=== PATIENT | male | born 1980 | race Caucasian/White ===

== ENCOUNTER 2016-08-24 07:49 | Emergency (ER) | payer BC ==
--- NOTE | 2016-08-24 08:12 | UC ---
Throat Pain/Nasal Glenn HPI - HPI Summary HPI Summary: complaint of nasal congestion, cough that started 4 days ago dry cough scratchy throat 1x day feels fatigued -denies muscle achiness denies fever took tylenol sinus OTC with some relief complaint of feeling anxious which has been worse for the last 9 months is and was in the hospital for several days always feels more anxiety when he is sick has been taking paxil for approx [address] Altamirano feels jittery and slightly nauseated today denies suicidal /homicidal ideation - History of Current Complaint Chief Complaint: UCRespiratory Stated Complaint: ANXIETY,COUGH Time Seen by Provider: 08/24/16 08:01 Hx Obtained From: Patient - Allergies/Home Medications Allergies/Adverse Reactions: Allergies Allergy/AdvReac Type Severity Reaction Status Date / Time environmentaL Allergy sinuses Uncoded 08/24/16 08:01 Home Medications: Home Medications Phenylephrine W/ Acetaminophen [Tylenol Sinus Congestion 5-325 mg] 1 tab PO DAILY PRN 08/24/16 [History Confirmed 08/24/16] PMH/Surg Hx/FS Hx/Imm Hx Previously Healthy: Yes Cardiovascular History Of: Denies: Pacemaker/ICD Respiratory History Of: Reports: Bronchitis - 03/2012 Psychological History Of: Reports: Anxiety - ON MEDICATION FOR, Depression - ON MEDICATION FOR - Surgical History Surgical History: Yes Surgery Procedure, Year, and Place: ROTATOR CUFF REPAIR- LEFT. SURGERY RIGHT MIDDLE FINGER - Family History Known Family History: Positive: Cardiac Disease, Hypertension Negative: Diabetes - Social History Occupation: Employed Full-time Lives: With Family Alcohol Use: Rare Substance Use Type: None Smoking Status (MU): Never Smoked Tobacco - Immunization History Most Recent Influenza Vaccination: March 2014 Review of Systems Constitutional: Negative Skin: Negative Eyes: Negative ENT: Nasal Discharge Respiratory: Cough Cardiovascular: Negative Gastrointestinal: Negative Genitourinary: Negative Motor: Negative Neurovascular: Negative Musculoskeletal: Negative Neurological: Negative Psychological: Negative All Other Systems Reviewed And Are Negative: Yes Physical Exam Triage Information Reviewed: Yes Appearance: No Pain Distress, Well-Nourished Vital Signs: Initial Vital Signs Temp 98.4 F 08/24/16 07:54 Pulse 80 08/24/16 07:54 Resp 20 08/24/16 07:54 BP 119/80 08/24/16 07:54 Pulse Ox 100 08/24/16 07:54 Vital Signs Reviewed: Yes Eyes: Positive: Conjunctiva Clear ENT: Positive: Pharyngeal erythema, Nasal congestion, Nasal drainage, TMs normal Neck: Positive: No Lymphadenopathy Respiratory: Positive: Lungs clear, Normal breath sounds, No respiratory distress Cardiovascular: Positive: RRR, No Murmur, Pulses Normal Abdomen Description: Positive: Nontender, Soft Bowel Sounds: Positive: Present Musculoskeletal: Positive: No Edema Neurological: Positive: Alert Psychological Exam: Normal Skin Exam: Normal Throat Pain/Nasal Course/Dx - Differential Dx/Diagnosis Differential Diagnosis/HQI/PQRI: Pharyngitis, URI Provider Diagnoses: anxiety, URI Discharge - Discharge Plan Condition: Stable Disposition: HOME Patient Education Materials: Anxiety (ED), Upper Respiratory Infection (ED) Referrals: Yazmin Altamirano MD [Medical Doctor] - [facility] [Outside] Additional Instructions: Anxiety If your symptoms of anxiety increase please contact your primary care provider to have your current medications for treatment evaluated. You can take your allergy medication as well to help control your symptoms of anxiety. Upper Respiratory Infection - Treatment is mainly symptom management and rest. -There is no cure for Upper Respiratory Infection. - Antibiotics will not work against viruses. -Stay home, rest, drink plenty of fluids, gargle with warm salt water to help soothe sore throat. -Avoid alcohol and smoking - Treat the symptoms with over the counter medications: - pain or fever- Acetaminophen or Ibuprofen - cough- use Guaifenesin , mucinex or robutussin - nasal congestion- Phenylephrine - If your symptoms worsen or do not improve in 7-10 days- please follow-up with your primary care physician or urgent care center
[2016-08-24 08:21] VITALS: BP 119/80
== END 2016-08-24 08:29 | disposition home or self-care (01) ==
LOC: UCCORT 07:49
DX: J06.9 Acute upper respiratory infection, unspecified (principal); F41.9 Anxiety disorder, unspecified
CPT/HCPCS: 99211; G0463

== ENCOUNTER 2017-11-14 18:02 | Emergency (ER) | payer BC ==
--- NOTE | 2017-11-14 18:24 | UC ---
Throat Pain/Nasal Glenn HPI - HPI Summary HPI Summary: 37 yo male presents with "scratchy" throat and painful swallowing and fatigue for the last 2 days. He is feeling better today, but is concerned because his was diagnosed with strep twice recently and he wants to make sure he doesn' t have it. Denies fever, chills, SOB, chest pain, abdominal pain. - History of Current Complaint Stated Complaint: COUGH, SORE THROAT Time Seen by Provider: 11/14/17 18:23 Hx Obtained From: Patient Onset/Duration: Sudden Onset Severity: Mild Pain Intensity: 2 Pain Scale Used: 0-10 Numeric - Allergies/Home Medications Allergies/Adverse Reactions: Allergies Allergy/AdvReac Type Severity Reaction Status Date / Time environmentaL Allergy sinuses Uncoded 11/14/17 18:26 PMH/Surg Hx/FS Hx/Imm Hx - Additional Past Medical History Additional PMH: Allergies Anxiety - Surgical History Surgical History: Yes Surgery Procedure, Year, and Place: ROTATOR CUFF REPAIR- LEFT. SURGERY RIGHT MIDDLE FINGER - Family History Known Family History: Positive: Cardiac Disease, Hypertension Negative: Diabetes - Social History Occupation: Employed Full-time Lives: With Family Alcohol Use: Rare Substance Use Type: None Smoking Status (MU): Never Smoked Tobacco - Immunization History Most Recent Influenza Vaccination: March 2014 Review of Systems Constitutional: Fatigue Skin: Negative Eyes: Negative ENT: Sore Throat Respiratory: Negative Cardiovascular: Negative Gastrointestinal: Negative Neurovascular: Negative Neurological: Negative Psychological: Negative All Other Systems Reviewed And Are Negative: Yes Physical Exam - Summary Physical Exam Summary: GENERAL: NAD. WDWN. No pain distress. SKIN: No rashes, sores, lesions, or open wounds. HEENT: Head: AT/NC Eyes: EOM intact. Conjunctiva clear without inflammation or discharge. Ears: Hearing grossly normal. TMs intact, no bulging, erythema, or edema. Nose: Nasal mucosa pink and moist. NTTP maxillary and frontal sinus. Throat: Posterior oropharynx without exudates, erythema, or tonsillar enlargement. Uvula midline. NECK: Supple. Nontender. No lymphadenopathy. CHEST: CTAB. No r/r/w. No accessory muscle use. Breathing comfortably and in no distress. CV: RRR. Without m/r/g. Pulses intact. Brisk cap refill. NEURO: Alert. CN II-XII grossly intact. PSYCH: Age appropriate behavior. Triage Information Reviewed: Yes Vital Signs: Vital Signs: Temp Pulse Resp BP Pulse Ox 98.1 F 79 14 122/79 99 11/14/17 18:24 11/14/17 18:24 11/14/17 18:24 11/14/17 18:24 11/14/17 18:24 Throat Pain/Nasal Course/Dx - Course Course Of Treatment: POC strep negative. Suspect viral illness. Advised to continue with conservative care as he is improving. - Differential Dx/Diagnosis Provider Diagnoses: viral illness Discharge - Sign-Out/Discharge Documenting (check all that apply): Discharge/Admit/Transfer - Discharge Plan Condition: Stable Disposition: HOME Patient Education Materials: Viral Syndrome (ED) Referrals: Renetta Abebe NP [Primary Care Provider] - Additional Instructions: If you develop a fever, shortness of breath, chest pain, new or worsening symptoms - please call your PCP or go to the ED. - Billing Disposition and Condition Condition: STABLE Disposition: Home
[2017-11-14 18:28] VITALS: BP 122/79
== END 2017-11-14 18:53 | disposition home or self-care (01) ==
LOC: UCCORT 18:02
DX: B34.9 Viral infection, unspecified (principal); Z91.09 Other allergy status, other than to drugs and biological substances
CPT/HCPCS: 87651; 99211; G0463

== ENCOUNTER 2018-06-04 07:51 | Emergency (ER) | payer BC ==
[2018-06-04 08:00] VITALS: BP 119/71
--- NOTE | 2018-06-04 08:26 | UC ---
Throat Pain/Nasal Glenn HPI - HPI Summary HPI Summary: Sore throat and myalgias for two days. No cough. Nausea as well. - History of Current Complaint Chief Complaint: UCGeneralIllness Stated Complaint: ST,NECK/BACK ACHE, FEVER Time Seen by Provider: 06/04/18 08:03 Hx Obtained From: Patient Onset/Duration: Gradual Onset, Lasting Days Severity: Moderate Pain Intensity: 6 Cough: None Associated Signs & Symptoms: Positive: Dysphagia - Allergies/Home Medications Allergies/Adverse Reactions: Allergies Allergy/AdvReac Type Severity Reaction Status Date / Time environmentaL Allergy sinuses Uncoded 06/04/18 08:00 PMH/Surg Hx/FS Hx/Imm Hx Previously Healthy: Yes - Surgical History Surgical History: Yes Surgery Procedure, Year, and Place: ROTATOR CUFF REPAIR- LEFT. SURGERY RIGHT MIDDLE FINGER - Family History Known Family History: Positive: Cardiac Disease, Hypertension Negative: Diabetes - Social History Lives: With Family Alcohol Use: Rare Substance Use Type: None Smoking Status (MU): Never Smoked Tobacco - Immunization History Most Recent Influenza Vaccination: March 2014 Review of Systems All Other Systems Reviewed And Are Negative: Yes Constitutional: Positive: Chills, Fatigue ENT: Positive: Sore Throat Physical Exam Triage Information Reviewed: Yes Appearance: Well-Appearing, No Pain Distress, Well-Nourished Vital Signs: Initial Vital Signs Temp 98.2 F 06/04/18 07:58 Pulse 87 06/04/18 07:58 Resp 18 06/04/18 07:58 BP 119/71 06/04/18 07:58 Pulse Ox 98 06/04/18 07:58 Vital Signs Reviewed: Yes ENT: Positive: Pharyngeal erythema, TMs normal, Tonsillar swelling, Tonsillar exudate, Uvula midline. Negative: Trismus Neck: Positive: Supple, Nontender, No Lymphadenopathy. Negative: Nuchal Rigidity Respiratory: Positive: Lungs clear, Normal breath sounds, No respiratory distress, No accessory muscle use. Negative: Respiratory distress, Decreased breath sounds, Accessory muscle use, Crackles, Rhonchi, Stridor, Wheezing Cardiovascular: Positive: No Murmur, Pulses Normal Abdomen Description: Negative: Distended, Guarding Musculoskeletal: Positive: Strength Intact, ROM Intact, No Edema Neurological: Positive: Alert, Muscle Tone Normal. Negative: Fatigued Psychological: Positive: Age Appropriate Behavior Skin: Negative: Rashes Throat Pain/Nasal Course/Dx - Differential Dx/Diagnosis Provider Diagnosis: Strep throat Discharge - Sign-Out/Discharge Documenting (check all that apply): Patient Departure All imaging exams completed and their final reports reviewed: No Studies - Discharge Plan Condition: Good Disposition: HOME Prescriptions: Penicillin VK 500 MG TAB(NF) [Penicillin VK 500 mg Tab] 500 mg PO TID #30 tab Patient Education Materials: Strep Throat (ED) Referrals: Renetta Abebe NP [Primary Care Provider] - - Billing Disposition and Condition Condition: GOOD Disposition: Home
== END 2018-06-04 08:24 | disposition home or self-care (01) ==
LOC: UCCORT 07:51
DX: J02.0 Streptococcal pharyngitis (principal); B95.0 Streptococcus, group A, as the cause of diseases classified elsewhere
CPT/HCPCS: 87651; 99212; G0463

== ENCOUNTER 2018-06-16 08:08 | Emergency (ER) | payer BC ==
[2018-06-16 08:29] VITALS: BP 120/81
--- NOTE | 2018-06-16 09:19 | ED ---
Respiratory - HPI Summary HPI Summary: 37 yr old male with the complaint of cough for two weeks, yellow green sputum, mild SOB. He feels fatigued, but he has not had fever. The patient denies dizziness. Denies chest pain. He has head congestion, and post nasal drip. - History of Current Complaint Chief Complaint: UCRespiratory Stated Complaint: CHEST CONGESTION, COUGH Time Seen by Provider: 06/16/18 08:37 Pain Intensity: 0 - Allergy/Home Medications Allergies/Adverse Reactions: Allergies Allergy/AdvReac Type Severity Reaction Status Date / Time environmentaL Allergy sinuses Uncoded 06/16/18 08:22 Home Medications: Home Medications Acetaminophen [Acetaminophen Extra Strength] 500 mg PO ONCE PRN 06/16/18 [ History Confirmed 06/16/18] Multi Cold Symptom Cough Med 2 tab PO ONCE PRN 06/16/18 [History] Multivitamin [Multivitamins] 1 cap PO DAILY 06/16/18 [History Confirmed 06/16/18 ] PMH/Surg Hx/FS Hx/Imm Hx Cardiovascular History: Denies: Hx Pacemaker/ICD GI History: Reports: Hx Gastroesophageal Reflux Disease, Hx Irritable Bowel Sensory History: Denies: Hx Contacts or Glasses, Hx Hearing Aid Opthamlomology History: Denies: Hx Contacts or Glasses Psychiatric History: Reports: Hx Anxiety - ON MEDICATION FOR, Hx Depression - ON MEDICATION FOR Denies: Hx Panic Disorder - Surgical History Surgery Procedure, Year, and Place: ROTATOR CUFF REPAIR- LEFT. SURGERY RIGHT MIDDLE FINGER Hx Anesthesia Reactions: No Infectious Disease History: No Infectious Disease History: Denies: Traveled Outside the [place] in Last 30 Days - Family History Known Family History: Positive: Cardiac Disease, Hypertension Negative: Diabetes - Social History Occupation: Employed Full-time Alcohol Use: Rare Substance Use Type: Reports: None Smoking Status (MU): Never Smoked Tobacco Review of Systems Positive: Fatigue Positive: Sore Throat, Nasal Discharge Positive: Cough All Other Systems Reviewed And Are Negative: Yes Physical Exam Triage Information Reviewed: Yes Vital Signs On Initial Exam: Initial Vitals Temp Pulse Resp BP Pulse Ox 98.3 F 80 15 120/81 99 06/16/18 08:25 06/16/18 08:25 06/16/18 08:25 06/16/18 08:25 06/16/18 08:25 Vital Signs Reviewed: Yes Appearance: Positive: Well-Appearing, No Pain Distress Skin: Positive: Warm, Skin Color Reflects Adequate Perfusion Head/Face: Positive: Normal Head/Face Inspection Eyes: Positive: EOMI ENT: Positive: Pharynx normal, Nasal congestion, Nasal drainage, TMs normal Neck: Positive: Nontender Respiratory/Lung Sounds: Positive: Clear to Auscultation, Breath Sounds Present Cardiovascular: Positive: RRR. Negative: Murmur Abdomen Description: Positive: Nontender Musculoskeletal: Positive: Strength/ROM Intact Neurological: Positive: Sensory/Motor Intact, Alert, Oriented to Person Place, Time, CN Intact II-III, Normal Gait, Speech Normal Psychiatric: Positive: Normal - Fatuma Coma Scale Best Eye Response: 4 - Spontaneous Best Motor Response: 6 - Obeys Commands Best Verbal Response: 5 - Oriented Coma Scale Total: 15 Diagnostics - Vital Signs Vital Signs Temp Pulse Resp BP Pulse Ox 06/16/18 08:25 98.3 F 80 15 120/81 99 - Laboratory Lab Statement: Any lab studies that have been ordered have been reviewed, and results considered in the medical decision making process. - Radiology chest pa lat Radiology Interpretation Completed By: Radiologist - NAD Disposition - Course Course Of Treatment: 37 yr old male with cough, and some SOB. Negative chest xray read by rad. - Diagnoses Provider Diagnoses: Sinusitis, Asthmatic bronchitis with acute exacerbation Discharge - Sign-Out/Discharge Documenting (check all that apply): Patient Departure All imaging exams completed and their final reports reviewed: Yes - Discharge Plan Condition: Good Disposition: HOME Prescriptions: Albuterol HFA INHALER* [Ventolin HFA Inhaler*] 1 - 2 puff INH Q4H PRN #1 mdi PRN Reason: Cough Clarithromycin TAB* [Biaxin 500 MG TAB*] 500 mg PO BID #20 tab Patient Education Materials: Sinusitis (ED), Asthma (ED) Referrals: Renetta Abebe NP [Primary Care Provider] - 2 Days - Billing Disposition and Condition Condition: GOOD Disposition: Home
== END 2018-06-16 09:27 | disposition home or self-care (01) ==
LOC: UCCORT 08:08
DX: J45.901 Unspecified asthma with (acute) exacerbation (principal); J32.9 Chronic sinusitis, unspecified
CPT/HCPCS: 71046; 99212; G0463

== ENCOUNTER 2018-11-27 07:15 | Emergency (ER) | payer BC ==
--- OUTSIDE RECORDS SUMMARY | 2018-11-27 07:26 | XMS REPORT | Continuity of Care Document ---
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 Unavailable Charlene Abebe, DISABILITY SERVICES COORDINATOR Primary Care Physician Unavailable Payers Date Identification Numbers Payment Provider Subscriber Effective: 2013 Policy Number: [id number] Jessika Mcneill PayID: [id number] [place] [address] Expires: 2013 Policy Number: [id number] Jessika Mcneill Group Name: Lance Huffman [address] PayID: [id number] [place] [address] Problems Active Problems Provider Date Gastroesophageal reflux disease Birgit Leavitt FNP Onset: 01/21/2012 Single major depressive episode Birgit Leavitt FNP Onset: 01/21/2012 Benign paroxysmal positional vertigo Charlene Abebe FNP Onset: 2015 Note: followed by Dr. Martinez Generalized anxiety disorder Charlene Abebe FNP Onset: 09/16/2017 Corns and callosities Charlene Abebe FNP Onset: 09/16/2017 Allergic rhinitis Charlene Abebe FNP Onset: 10/06/2017 Kidney stone Nancy Simmons M.D. Onset: 01/03/2018 Resolved Problems Malaise and fatigue Birgit Leavitt FNP Onset: 01/21/2012 Resolved: 07/05/2018 Family History Date Family Member(s) Observation Comments Father No Current Problems Mother CAD collapsed artery in heart Mother Anxiety Paternal Grandfather due to () Parkinson's Disease Paternal Grandmother Diabetes diet controlled : (age Maternal Grandfather due to Kidney 85 Years) Disease Maternal Grandmother due to () Alzheimer's Disease Social History Type Date Description Comments Sex Unknown Lives With Lives With Son Diet Patient follows no dietary restrictions Occupation [employer] Use Drinks Alcoholic Beverages Occasionally Tobacco Use Start: Unknown Patient has never smoked Recreational Drug Use Never Used Drugs Smoking Status Reviewed: 10/19/18 Patient has never smoked Allergies, Adverse Reactions, Alerts Description No Known Drug Allergies Medications Active Medications SIG Qnty Indications Ordering Date Provider Omeprazole 1 by mouth 90caps K21.9 [place], 10/19/[address] every day WINSOME Chang Naproxen take one 60tabs M25.50 [place], 10/19/2018 500mg Tablets tablet by Charlene, mouth twice a [employer] day Meclizine HCL 1 tab by mouth 60tabs H81.12 Hood Wallace MD 09/20/2018 25mg Tablets twice a day Qnasl [place] 1 [place] 26.1units J30.9 [place], 10/06/2017 80mcg/Act [facility] Nostril Once A [employer] Day Buspirone HCL Take One To 60tabs F41.1 [place], 09/16/2017 5mg Tablets Two Tablets By Charlene, Mouth Twice A [employer] Day as Needed For Anxiety And Panic Attacks Paroxetine HCL Take One 30tabs stephanie, 08/24/2016 40mg Tablets Tablet By Charlene, Mouth Every [employer] Day Levocetirizine 1 by mouth 90tabs [place], Dihydrochloride every night Charlene 5mg Tablets [facility] Multivitamin 1 tab po daily Unknown History Medications Augmentin 1 by mouth 20tabs J01.90 Charlene Abebe, 07/05/2018 - 500-125mg twice a day [employer] 07/15/2018 Tablets Tamsulosin HCL Once Daily 10caps Unknown 01/01/2018 - 01/26/2018 0.4mg Capsules Amoxicillin 1 by mouth 14tabs Shirley Orlando MD 09/09/2015 - 875mg twice a day 09/19/2015 Tablets Omeprazole take one 30caps Charlene Abebe, 08/12/2014 - 20mg capsule by [facility] 09/16/[address] mouth every day [facility] Laxative 1 po bid 60tabs Yazmin Altamirano, 01/16/2013 - 03/31/2015 625mg Tablets Qnasl one spray to Yazmin Altamirano, - 80mcg/Act each nostril 03/31/2015 Aerosol every day Paroxetine HCL Take Two 60tabs Charlene Abebe, - 20mg Tablets By [facility] 08/24/2016 Tablets Mouth Every Day Immunizations CPT Code Status Date Vaccine Lot # [id number] Given 03/17/2018 Influenza Virus Vaccine, Quadrivalent, 36 Mos+, .5ML 08506 Given 03/25/2017 Influenza Virus Vaccine, Quadrivalent, [place] Virus[place] Use [id number] Given 04/02/2016 Influenza Virus Vaccine Split Virus Use For Individual 3Yr Older [id number] Given 03/31/2015 Influenza Vaccine (Fluzone) Age 3 And Older [id number] 18519 Given 03/31/2015 Tdap injection [id number] 89346 Given 04/16/2014 flu vaccination 51731 Given 04/11/2013 flu vaccination 22315 Given 03/14/2012 flu vaccination Vital Signs Date Vital Result Comment 10/19/2018 11:20am BP Systolic 114 mmHg BP Diastolic 72 mmHg Body Temperature 97.9 F Heart Rate 77 /min Respiratory Rate 18 /min Height 67 inches 5'7" Weight 153.25 lb BMI (Body Mass Index) 24.0 kg/m2 BSA (Body Surface Area) 1.81 m2 [place] body weight in kilograms 67 kg O2 % BldC Oximetry 97 % Ra 09/20/2018 9:04am BP Systolic 118 mmHg BP Diastolic 76 mmHg Body Temperature 97.0 F Heart Rate 83 /min Height 67 inches 5'7" Weight 153.00 lb BMI (Body Mass Index) 24.0 kg/m2 BSA (Body Surface Area) 1.80 m2 [place] body weight in kilograms 67 kg O2 % BldC Oximetry 98 % 08/18/2018 10:31am BP Systolic Sitting Right Arm 114 mmHg BP Diastolic Sitting Right Arm 68 mmHg Body Temperature 97.6 F Heart Rate 95 /min Weight 153.00 lb O2 % BldC Oximetry 96 % 07/05/2018 9:47am BP Systolic Sitting Left Arm 120 mmHg BP Diastolic Sitting Left Arm 82 mmHg Body Temperature 97.4 F Heart Rate 84 /min Weight 163.12 lb O2 % BldC Oximetry 98 % 01/26/2018 3:13pm BP Systolic 115 mmHg BP Diastolic 76 mmHg Body Temperature 98.1 F Heart Rate 86 /min Respiratory Rate 16 /min Height 67 inches 5'7" [place] body weight in kilograms 67 kg O2 % BldC Oximetry 97 % Pain Level 0 01/03/2018 8:05am BP Systolic 120 mmHg BP Diastolic 83 mmHg Body Temperature 98.1 F Heart Rate 73 /min Respiratory Rate 18 /min Height 67 inches 5'7" Weight 153.00 lb BMI (Body Mass Index) 24.0 kg/m2 BSA (Body Surface Area) 1.80 m2 [place] body weight in kilograms 67 kg O2 % BldC Oximetry 98 % Pain Level 2 intemittent rt flank 10/06/2017 3:14pm BP Systolic Sitting Left Arm 120 mmHg BP Diastolic Sitting Left Arm 72 mmHg Heart Rate 80 /min Respiratory Rate 18 /min Height 67 inches 5'7" Weight 153.00 lb BMI (Body Mass Index) 24.0 kg/m2 BSA (Body Surface Area) 1.80 m2 [place] body weight in kilograms 67 kg 09/16/2017 1:58pm BP Systolic Sitting Left Arm 112 mmHg BP Diastolic Sitting Left Arm 72 mmHg Heart Rate 88 /min Respiratory Rate 18 /min Height 67 inches 5'7" Weight 147.38 lb BMI (Body Mass Index) 23.1 kg/m2 BSA (Body Surface Area) 1.78 m2 [place] body weight in kilograms 67 kg 03/31/2015 3:54pm BP Systolic 112 mmHg BP Diastolic 70 mmHg Height 57 inches 4'9" Weight 142.50 lb BMI (Body Mass Index) 30.8 kg/m2 BSA (Body Surface Area) 1.56 m2 08/12/2014 3:22pm BP Systolic 114 mmHg BP Diastolic 72 mmHg Body Temperature 97.8 F Weight 153.00 lb 02/11/2014 4:03pm BP Systolic 116 mmHg BP Diastolic 72 mmHg Body Temperature 98.2 F Heart Rate 80 /min Respiratory Rate 20 /min Height 67 inches 5'7" Weight 145.00 lb 01/16/2013 3:31pm BP Systolic 118 mmHg BP Diastolic 86 mmHg Height 67 inches 5'7" Weight 146.00 lb 07/18/2012 3:28pm BP Systolic 110 mmHg BP Diastolic 68 mmHg Height 67 inches 5'7" Weight 144.00 lb 03/14/2012 3:28pm BP Systolic 112 mmHg BP Diastolic 66 mmHg Height 67 inches 5'7" Weight 141.00 lb 03/01/2012 4:24pm Height 67 inches 5'7" Weight 141.00 lb 02/01/2012 10:23am BP Systolic 100 mmHg BP Diastolic 72 mmHg Height 67 inches 5'7" Weight 138.00 lb 01/11/2012 1:55pm BP Systolic 110 mmHg BP Diastolic 70 mmHg Height 67 inches 5'7" Weight 142.00 lb Results Test Date Facility Test Result H/L Range Note Rheumatoid Panel 10/19/[address] Sedimentation Rate 8 mm/hr N 2-40 1, 2 ([facility]) [address] [place] [phone] Uric Acid 6.2 mg/dL N 3.5-7.2 Rheumatoid Factor Screen < 10.0 IU/mL N 0.0-15.0 C-Reactive Protein,Quant < 3.0 mg/L <3.0 Antinuclear Antibodies, Ifa Negative . 3 Lyme AB/Western 10/19/[address] [facility] [address] Lyme Total < 0.91 ISR 0.00- 0.90 4 Blot Reflex [address] [place] [address] AB/[place] [address] [phone] Lyme Disease Antibody,QT,Igm < 0.80 index 0.00-0.79 5 CBC 10/19/[address] [facility] [address] White Blood Count 12.5 K/uL High 3.4- 10.[address] [place] [address] [phone] Red Blood Count 5.41 M/uL N 4.20-5.80 Hemoglobin 16.6 gm/dL N 12.8-17.0 Hematocrit 49.5 % High 38.0-48.0 Mean Cell Volume 91.5 fl N 80.0-96.0 Mean Corpuscular HGB 30.7 pg N 27.0-33.0 Mean Corpuscular HGB Conc 33.5 g/dL N 31.7-36.0 Platelet Count 300 K/uL N 155-360 Red Cell Distri Width SD 44.5 fl N 36-51 Red Cell Distri Width %CV 13.2 % N 11.6-15.8 Mean Platelet Volume 12.2 fl High 6.6-10.6 NRBC % 0.0 /100WBC < 10/ 100 WBC Systemic Lupus 10/19/[address] [facility] [address] Ra Latex <10.0 IU/mL 0.0- 13.9 Erythem. Profil [address] [facility] [place] [address] [phone] Anti-Dna Antibody ([place]) <1 IU/mL 0-9 6 SM Antibody <0.2 AI 0.0-0.9 COMMISSIONS COORDINATOR Antibody <0.2 AI 0.0-0.9 Sjogrens Antibodies (Ssa) <0.2 AI 0.0-0.9 Antichromatin Antibodies <0.2 AI 0.0-0.9 Sjogrens Antibodies (SSB) <0.2 AI 0.0-0.9 Laboratory test finding 10/19/2018 [facility] [address] Calcium 9.2 mg/dL N 8.5-10.1 [address] [place] [address] [phone] Total Protein 7.8 g/dL N 6.4-8.2 Albumin 4.1 g/dL N 3.4-5.0 Alb/Glob 1.1 ratio Alkaline Phosphatase 100 U/L N 45-117 Globulin 3.7 g/dL N 1.9-4.3 Laboratory 06/04/2018 [facility] Rapid Strep POSITIVE Abnormal Negative 7 test finding [phone] Molecular Calculi,Urinar 01/26/2018 [facility] Color Brown . 8 y,With Photo [address] [place] [address] [phone] Size 4x3x2 mm . Weight 21.9 mg . Composition (SEE NOTE) 9 Ca Oxalate,Dihydrate 20 % . Ca Oxalate,Monohydrate 75 % . Calcium Phosphate 05 % . Nidus No Nidus visuali <SEE NOTE> . 10 Comment Note: . 11 . (SEE NOTE) 12 . (SEE NOTE) 13 . (SEE NOTE) 14 Disclaimer (SEE NOTE) 15 Monocytes/leuk NFr 01/01/2018 N2N/CCD Import Monocytes/leuk NFr 7.7 0.0- 10.0 Bld Auto Bld Auto Neutrophils # Bld 01/01/2018 N2N/CCD Import Neutrophils # Bld 5.36 1.8- 7.0 Auto Auto Neutrophils/leuk NFr 01/01/2018 N2N/CCD Import Neutrophils/leuk 64.5 33.0-73.0 Bld Auto NFr Bld Auto Potassium SerPl-sCnc 01/01/2018 N2N/CCD Import Potassium 3.7 3.5-5.1 SerPl-sCnc RDW RBC Auto 01/01/2018 N2N/CCD Import RDW RBC Auto 41.8 36-51 RDW RBC Auto-Rto 01/01/2018 N2N/CCD Import RDW RBC Auto-Rto 13.0 11.6- 15.8 Serum carbon dioxide 01/01/2018 N2N/CCD Import Serum carbon 27 21-32 measurement dioxide measurement Serum or plasma 01/01/2018 N2N/CCD Import Serum or plasma 3.7 3.4-5.0 albumin measurement albumin measurement (mass/volume) (mass/volume) Serum or plasma 01/01/2018 N2N/CCD Import Serum or plasma 82 45-117 alkaline phosphatase alkaline measurement ( phosphatase measurement (enzymatic activity/volume) Serum or plasma 01/01/2018 N2N/CCD Import Serum or plasma 21 15-37 aspartate aspartate aminotransferase aminotransferase measure measurement (enzymatic activity/volume) Serum or plasma 01/01/2018 N2N/CCD Import Serum or plasma 8.8 8.5-10.1 calcium measurement calcium measurement (mass/volume) (mass/volume) Serum or plasma 01/01/2018 N2N/CCD Import Serum or plasma 1.1 0.6-1.3 creatinine creatinine measurement measurement (mass/volum (mass/volume) Serum or plasma 01/01/2018 N2N/CCD Import Serum or plasma 108 High 74- 106 glucose measurement glucose measurement (mass/volume) (mass/volume) Serum or plasma 01/01/2018 N2N/CCD Import Serum or plasma 138 56-289 lipase measurement lipase measurement (enzymatic acti (enzymatic activity/volume) Serum or plasma 01/01/2018 N2N/CCD Import Serum or plasma 7.2 6.4-8.2 protein measurement protein measurement (mass/volume) (mass/volume) Serum or plasma 01/01/2018 N2N/CCD Import Serum or plasma 0.5 0.2-1.0 total bilirubin total bilirubin measurement (mass/ measurement (mass/volume) Serum or plasma urea 01/01/2018 N2N/CCD Import Serum or plasma 12 7-18 nitrogen measurement urea nitrogen (mass/vo measurement (mass/volume) Serum sodium 01/01/2018 N2N/CCD Import Serum sodium 142 136-145 measurement measurement Comprehensive 01/01/2018 [facility] Glucose 108 High 74-106 16 Metabolic Panel [address] mg/[place] [address] [phone] BUN 12 mg/dL N 7-18 Creatinine 1.1 mg/dL N 0.6-1.3 Glom Filtration Rate, Estimate >60 mL/min >60 If >60 mL/min >60 17 BUN/Creat 10.9 ratio Sodium 142 mmol/L N 136-145 Potassium 3.7 mmol/L N 3.5-5.1 Chloride 108 mmol/L High 98-107 Carbon Dioxide 27 mmol/L N 21-32 Anion Gap 7 mEq/L Low 8-16 Calcium 8.8 mg/dL N 8.5-10.1 Total Protein 7.2 g/dL N 6.4-8.2 Albumin 3.7 g/dL N 3.4-5.0 Globulin 3.5 g/dL N 1.9-4.3 Alb/Glob 1.1 ratio Bilirubin,Total 0.5 mg/dL N 0.2-1.0 Sgot/Ast 21 U/L N 15-37 SGPT/Alt 27 U/L N 12-78 Alkaline Phosphatase 82 U/L N 45-117 CBS W/Automated Diff 01/01/2018 [facility] White Blood 8.3 K/uL N 3.4-10.[address] [place] [address] [phone] Red Blood Count 5.10 M/uL N 4.20-5.80 Hemoglobin 15.6 gm/dL N 12.8-17.0 Hematocrit 45.3 % N 38.0-48.0 Mean Cell Volume 88.8 fl N 80.0-96.0 Mean Corpuscular HGB 30.6 pg N 27.0-33.0 Mean Corpuscular HGB Conc 34.4 g/dL N 31.7-36.0 Platelet Count 224 K/uL N 155-360 Red Cell Distri Width SD 41.8 fl N 36-51 Red Cell Distri Width %CV 13.0 % N 11.6-15.8 Mean Platelet Volume 11.4 fL High 6.6-10.6 Neut% 64.5 % N 33.0-73.0 Lymph % 24.4 % N 20.0-42.0 [place] % 7.7 % N 0.0-10.0 Eo% 3.0 % N 0.0-6.6 Bas% 0.4 % N 0.0-1.1 Neut# 5.36 K/uL N 1.8-7.0 Lymph # 2.03 K/uL N 1.0-4.0 [place] # 0.64 K/uL N 0.0-0.8 Eos # 0.25 K/uL N 0.0-0.5 Baso # 0.03 K/uL N 0.0-0.1 Laboratory 01/01/2018 [facility] Lipase 138 U/L N 56-289 test finding [address] [place] [address] [phone] Alt SerPl-cCnc 01/01/2018 N2N/CCD Import Alt SerPl-cCnc 27 12-78 Albumin/Glob 01/01/2018 N2N/CCD Import Albumin/Glob 1.1 SerPl SerPl Anion Gap 01/01/2018 N2N/CCD Import Anion Gap 7 Low 8-16 SerPl-sCnc SerPl-sCnc Automated 01/01/2018 N2N/CCD Import Automated blood 0.03 0.0-0.1 blood basophil basophil count count (count/volume) (count/volume) Automated 01/01/2018 N2N/CCD Import Automated blood 0.25 0.0-0.5 blood eosinophil eosinophil count count Automated 01/01/2018 N2N/CCD Import Automated blood 45.3 38.0-48.0 blood hematocrit hematocrit (volume (volume fraction) fraction) Automated 01/01/2018 N2N/CCD Import Automated blood 2.03 1.0-4.0 blood lymphocyte lymphocyte count count (number/volume) (number/volume ) Automated 01/01/2018 N2N/CCD Import Automated blood 224 155-360 blood platelet platelet count count Automated 01/01/2018 N2N/CCD Import Automated blood 11.4 High 6.6-10.6 blood platelet platelet mean mean volume volume measurement measurement Automated 01/01/2018 N2N/CCD Import Automated 30.6 27.0-33.0 erythrocyte erythrocyte mean mean corpuscular corpuscular hemoglobin hemoglobin (mass per erythrocyte) Lymphocytes/le 01/01/2018 N2N/CCD Import Lymphocytes/jeremy 24.4 20.0-42.0 uk NFr Bld k NFr Bld Auto Auto Globulin Ser 01/01/2018 N2N/CCD Import Globulin Ser 3.5 1.9-4.3 Calc-mCnc Calc-mCnc Eosinophil/jeremy 01/01/2018 N2N/CCD Import Eosinophil/leuk 3.0 0.0-6.6 k NFr Bld Auto NFr Bld Auto Chloride 01/01/2018 N2N/CCD Import Chloride 108 High 98-107 SerPl-sCnc SerPl-sCnc Blood 01/01/2018 N2N/CCD Import Blood monocytes 0.64 0.0-0.8 monocytes automated count automated (number/volume) count (number/volume ) Blood 01/01/2018 N2N/CCD Import Blood 8.3 3.4-10.5 leukocytes leukocytes automated automated count count (number/volume) (number/volume ) Automated 01/01/2018 N2N/CCD Import Automated 34.4 31.7-36.0 erythrocyte erythrocyte mean mean corpuscular corpuscular hemoglobin hemoglobin concentration measurement (mass/volume) Automated 01/01/2018 N2N/CCD Import Automated 88.8 80.0-96.0 erythrocyte erythrocyte mean mean corpuscular corpuscular volume volume BUN/Creat 01/01/2018 N2N/CCD Import BUN/Creat SerPl 10.9 SerPl Basophils/leuk 01/01/2018 N2N/CCD Import Basophils/leuk 0.4 0.0-1.1 NFr Bld Auto NFr Bld Auto Blood 01/01/2018 N2N/CCD Import Blood 5.10 4.20-5.80 erythrocytes erythrocytes automated automated count count (number/volume) (number/volume ) Blood 01/01/2018 N2N/CCD Import Blood 15.6 12.8-17.0 hemoglobin hemoglobin measurement measurement (mass/volume) (mass/volume) Laboratory 11/14/2017 [facility] Rapid Strep Negative Negative 18 test finding [phone] Molecular LDL 09/16/[address] Cholesterol 245 mg/dL High <200 19, Cholesterol [address] [place] [address] [phone] Triglycerides 124 mg/dL <150 21 HDL Cholesterol 67 mg/dL >40 22 LDL-Cholesterol 153 mg/dL < 100 23 Comprehensive Metabolic 09/16/[address] Glucose 80 mg/dL N 74 -[address] [place], [place] [id number] [phone] BUN 15 mg/dL N 7-18 Creatinine 1.0 mg/dL N 0.6-1.3 Glom Filtration Rate, Estimate >60 mL/min >60 If >60 mL/min >60 24 BUN/Creat 15.0 ratio Sodium 141 mmol/L N 136-145 Potassium 3.8 mmol/L N 3.5-5.1 Chloride 103 mmol/L N 98-107 Carbon Dioxide 26 mmol/L N 21-32 Anion Gap 12 mEq/L N 8-16 Calcium 9.5 mg/dL N 8.5-10.1 Total Protein 8.0 g/dL N 6.4-8.2 Albumin 4.2 g/dL N 3.4-5.0 Globulin 3.8 g/dL N 1.9-4.3 Alb/Glob 1.1 ratio Bilirubin,Total 0.7 mg/dL N 0.2-1.0 Sgot/Ast 26 U/L N 15-37 SGPT/Alt 31 U/L N 12-78 Alkaline Phosphatase 81 U/L N 45-117 Serum or plasma 09/16/2017 N2N/CCD Import Serum or plasma 67 >40 cholesterol in cholesterol in HDL HDL measurement measurement (ma (mass/volume) Serum or plasma 09/16/2017 N2N/CCD Import Serum or plasma 124 <150 triglyceride triglyceride measurement measurement (mass/vol (mass/volume) Serum or plasma 09/16/2017 N2N/CCD Import Serum or plasma 245 High <200 cholesterol cholesterol measurement measurement (mass/volu (mass/volume) Serum or plasma 09/16/2017 N2N/CCD Import Serum or plasma 153 < 100 cholesterol in cholesterol in LDL LDL measurement measurement by by calculation (mass/volume) CBC Auto Diff 02/16/2016 [facility] White Blood Count 7.7 N 3.5-10.8 25 [phone] 10^3/uL Red Blood Count 5.15 10^6/uL N 4.0-5.4 Hemoglobin 15.3 g/dL N 14.0-18.0 Hematocrit 46 % N 42-52 Mean Corpuscular Volume 90 fL N 80-94 Mean Corpuscular Hemoglobin 30 pg N 27-31 Mean Corpuscular HGB Conc 33 g/dL N 31-36 Red Cell Distribution Width 13 % N 10.5-15 Platelet Count 222 10^3/uL N 150-450 Mean Platelet Volume 11 um3 High 7.4-10.4 Abs Neutrophils 5.3 10^3/uL N 1.5-7.7 Abs Lymphocytes 1.7 10^3/uL N 1.0-4.8 Abs Monocytes 0.5 10^3/uL N 0-0.8 Abs Eosinophils 0.1 10^3/uL N 0-0.6 Abs Basophils 0 10^3/uL N 0-0.2 Abs Nucleated RBC 0 10^3/uL N Granulocyte % 69.2 % N 38-83 Lymphocyte % 22.5 % Low 25-47 Monocyte % 6.6 % N 1-9 Eosinophil % 1.2 % N 0-6 Basophil % 0.5 % N 0-2 Nucleated Red Blood Cells % 0 N Basic Metabolic 02/16/2016 [facility] Sodium 139 mmol /L N 133-145 Panel [phone] Chloride 104 mmol/L N 101-111 Co2 Carbon Dioxide 29 mmol/L N 22-32 Glucose 92 mg/dL N 70-100 Blood Urea Nitrogen 14 mg/dL N 6-24 Creatinine 1.01 mg/dL N 0.67-1.17 BUN/Creatinine Ratio 13.9 N 8-20 Calcium 9.4 mg/dL N 8.6-10.3 Egfr Non- 84.1 N >60 Egfr 108.1 N >60 26 Potassium TNP mmol/L N 3.5-5.0 Anion Gap TNP mmol/L N 2-11 Laboratory test 09/28/2013 N2N/CCD Import Ebv Capsid Ag Positive Negative finding IgG Ab Ebv Capsid Ag IgM Ab Negative Negative Valerie-Ball Nuclear Antigen Positive Negative Valerie-Ball Virus Interp See Comment 27 Monospot Negative Negative 28 CBC Auto Diff 08/01/2012 N2N/CCD Import Abs Basophils 0 10^3/uL 0-0.2 Abs Eosinophils 0.1 10^3/uL 0-0.6 Abs Lymphocytes 1.7 10^3/uL 1.0-4.8 Abs Monocytes 0.5 10^3/uL 0-0.8 Abs Neutrophils 5.2 10^3/uL 1.5-7.7 Abs Nucleated RBC 0.02 10^3/uL Hematocrit 46 % 42-52 Hemoglobin 16.1 g/dL 14.0-18.0 Mean Corpuscular HGB Conc 35 g/dL 31-36 Mean Corpuscular Hemoglobin 32 pg High 27-31 Mean Corpuscular Volume 91 fL 80-94 Mean Platelet Volume 11 um3 High 7.4-10.4 Platelet Count 210 10^3/uL 150-450 Red Blood Count 5.06 10^6/uL 4.0-5.4 Red Cell Distribution Width 14 % 10.5-15 White Blood Count 7.5 10^3/uL 4.8-10.8 Comp Metabolic Panel 08/01/2012 N2N/CCD Import Albumin 4.3 g/dL 3.6-5.4 Albumin/Globulin Ratio 2.0 1-3 Alkaline Phosphatase 75 U/L 30-110 Alt 23 U/L 14-54 Anion Gap 5.0 mmol/L 2-11 Ast 23 U/L 12-42 BUN/Creatinine Ratio 10.0 8-20 Blood Urea Nitrogen 10 mg/dL 6-24 Calcium 9.7 mg/dL 8.1-9.9 Chloride 106 mmol/L 101-111 Co2 Carbon Dioxide 31.0 mmol/L 22-32 Creatinine 1.00 mg/dL 0.50-1.40 Egfr 111.4 >60 29 Egfr Non- 86.6 >60 Globulin 2.2 g/dL 2-4 Glucose 89 mg/dL 70-100 Potassium 4.4 mmol/L 3.5-5.0 Sodium 142 mmol/L 133-145 Total Bilirubin 1.0 mg/dL 0.4-1.5 Total Protein 6.5 g/dL 6.2-8.1 Lipid Profile 08/01/2012 N2N/CCD Import Cholesterol 226 mg/dL High Less than (Trig/Chol/HDL) 200 Cholesterol/HDL Ratio 3.4 Average 1-4.44 HDL Cholesterol 66 mg/dL High 40-60 30 LDL Cholesterol 141.4 mg/dL High Less Than 100 31 Triglycerides 93 mg/dL 40-200 Manual Differential 08/01/2012 N2N/CCD Import Eosinophils % 2 % 0-6 Lymphocytes % 25 % 25-47 Monocytes % 6 % 0-13 Neutrophil % 67 % 38-83 RBC Morphology Normal Normal Laboratory test 01/11/2012 N2N/CCD Import TSH 1.23 MIU/ML 0.34-5.60 finding CBC Auto Diff 01/11/2012 N2N/Vostu Import Abs Basophils 0 0-0.2 Abs Eosinophils 0.1 0-0.6 Abs Lymphs 2.0 1.0-4.8 Abs Mononuclear 0.6 0-0.8 Absolute Neutrophil Count 5.0 1.5-7.7 Basophil % 0.5 % 0-2 Eosinophil % 1.4 % 0-6 Gran % 64.2 % 38-83 Hematocrit 42 % 42-52 Hemoglobin 14.1 g/dL 14.0-18.0 Lymph % 26.4 % 20-45 Mean Corpuscular HGB Cone 34 g/dL 32-36 Mean Corpuscular Hemoglob 30 pg 27-31 Mean Corpuscular Volume 91 um3 80-94 Mean Platelet Volume 11.1 um3 High 7.4-10.4 Mononuclear % 7.5 % 1-9 Platelet Count 196 CUMM 150-450 Red Cell Count 4.63 CUMM 4.6-6.2 Redcell Distribution WDTH 14 % 10.5-15 White Blood Count 7.7 CUMM 4.8-10.8 Comp Metabolic Panel 01/11/2012 N2N/Vostu Import Albumin 4.3 GM/DL 3.6- 5.4 Albumin/Globulin Ratio 2.0 1-3 Alkaline Phosphatase 62 U/L 39-117 Alt (SGPT) 24 U/L 17-63 Anion Gap 8.0 mmol/L 2-11 32 Ast (Sgot) 24 U/L 12-42 BUN 12 mg/dL 6-24 BUN/Creatinine Ratio 12.0 8-20 Bilirubin Total 0.8 mg/dL 0.4-1.5 33 Calcium 9.2 mg/dL 8.1-9.9 Chloride 103 mmol/L 101-111 Co2 (Carbon Dioxide) 28.0 mmol/L 22-32 Creatinine 1.0 mg/dL 0.50-1.40 Globulin 2.2 GM/DL 2-4 Glucose 87 mg/dL 70-100 One Over Creatinine 1.00 Potassium 4.1 mmol/L 3.5-5.0 Sodium 139 mmol/L 135-145 Total Protein 6.5 GM/DL 6.2-8.1 eGFR 112.1 > 60 34 eGFR Non- 87.2 > 60 Lipid Profile 01/11/2012 N2N/CCD Import Cholesterol 217 mg/dL High Less Than 35 (Trig/Chol/HDL) 200 Cholesterol/HDL Ratio 3.39 AVERAGE 1-4.97 High Density Lipoprotein 64 mg/dL High 40-60 36 Low Density Lipoprotein 134 mg/dL High Less Than 100 37 Triglyceride 96 mg/dL 40-200 1 M25.50 2 This result was obtained with an ESR method that is not based on the standard Westergren Method. When comparing results obtained from the traditional Westergren ESR and this method it is important to refer to the reference range for each method. Method: Capillary Photometry 3 Negative <1:80 Borderline 1:80 Positive >1:80 Performed at: [address] [id number] [place] [employer] Ref[employer]isher: Rupinder Jarrell MD, Phone: [phone] 4 Negative <0.91 Equivocal 0.91 - 1.09 Positive >1.09 5 Negative <0.80 Equivocal 0.80 - 1.19 Positive >1.19 IgM levels may peak at 3-6 weeks post infection, then gradually decline. 6 Negative <5 Equivocal 5 - 9 Positive >9 7 [employer]: [id number] N20.0 9 Percentage (Represents the % composition) 10 No Nidus visualized 11 Blood was observed on exterior of specimen. 12 Photograph will follow under separate cover. 13 Physician questions regarding Calculi Analysis contact [facility] at: [phone]. 14 Calculi report with photograph will follow via computer, mail or ekg/ecg technician delivery. 15 This test was developed and its performance characteristics determined by [employer]. It has not been cleared or approved by the Food and Drug Administration. Performed at: [facility] [id number] [place] [employer]isher: Cole Vail MD, Phone: [phone] 16 LOWER BACK PAIN/ ABD PAIN 17 Note: Persistent reduction for 3 months or more in an eGFR <60 mL/min/1.73 m2 defines CKD. Patients with eGFR values >/=60 mL/min/1.73 m2 may also have CKD if evidence of persistent proteinuria is present. The original MDRD equation for estimated GFR is not valid for patients less than 18 years of age. Additional information may be found at www.kdoqi.org. 18 [employer]: [id number] L84 20 Reference Guidelines*: Desirable: ........... < 200 mg/dL Borderline High: ..... 200-239 mg/dL High: ................ >=240 mg/dL * The National Cholesterol Education Program (NCEP) 21 Reference Guidelines*: Normal: ............. < 150 mg/dL Borderline High: .... 150-199 mg/dL High: ............... 200-499 mg/dL Very High: .......... > 500 mg/dL * Source: National Cholesterol Education Program (NCEP) 22 Reference Guidelines*: Low HDL: ..... < 40 mg/dL Normal: ..... 40-60 mg/dL Desirable: ... > 60 mg/dL *The National Cholesterol Education Program(NCEP) 23 Reference Guidelines*: Optimal:........... <100 mg/dL Near Optimal....... 100-129 mg/dL Borderline High.... 130-159 mg/dL High............... 160-189 mg/dL Very High.......... >=190 mg/dL * Source: National Cholesterol Education Program (NCEP) 24 Note: Persistent reduction for 3 months or more in an eGFR <60 mL/min/1.73 m2 defines CKD. Patients with eGFR values >/=60 mL/min/1.73 m2 may also have CKD if evidence of persistent proteinuria is present. The original MDRD equation for estimated GFR is not valid for patients less than 18 years of age. Additional information may be found at www.kdoqi.org. 25 [id number] 26 Because ethnic data is not always readily available, this report includes an eGFR for both -Americans and non- Americans. The National Kidney Disease Education Program (NKDEP) does not endorse the use of the MDRD equation for patients that are not between the ages of 18 and 70, are , have extremes of body size, muscle mass, or nutritional status, or are non- or non-. According to the National Kidney Foundation, irrespective of diagnosis, the stage of the disease is based on the level of kidney function: Stage Description GFR(mL/min/1.73 m(2)) 1 Kidney damage with normal or decreased GFR 90 2 Kidney damage with mild decrease in GFR 60-89 3 Moderate decrease in GFR 30-59 4 Severe decrease in GFR 15-29 5 Kidney failure <15 (or dialysis) 27 RESULT: Results suggest past infection. In most populations, at least 90% of the adult population will have been infected with EBV sometime in the past and therefore, will be positive for anti-VCA/IgG and anti- EBNA. Antibodies to EBNA develop 6-8 weeks after primary infection and remain present for life. Presence of VCA/ IgM antibodies indicates recent primary infection with EBV. Test Performed by: [place] [address] Nurse Educator: John Robison III, M.D. 28 Y 29 Because ethnic data is not always readily available, this report includes an eGFR for both -Americans and non- Americans. The National Kidney Disease Education Program (NKDEP) does not endorse the use of the MDRD equation for patients that are not between the ages of 18 and 70, are , have extremes of body size, muscle mass, or nutritional status, or are non- or non-. According to the National Kidney Foundation, irrespective of diagnosis, the stage of the disease is based on the level of kidney function: Stage Description GFR(mL/min/1.73 m(2)) 1 Kidney damage with normal or decreased GFR 90 2 Kidney damage with mild decrease in GFR 60- 89 3 Moderate decrease in GFR 30-59 4 Severe decrease in GFR 15-29 5 Kidney failure <15 (or dialysis) 30 HDL Interpretation: Undesirable: High Risk: Less than 40 MG/DL Desirable: Low Risk: Greater than 60 MG/DL 31 LDL Interpretation: Low Risk Optimal Level: LDL Less than 100 MG/DL Near or Above Optimal: LDL 100-129 MG/DL Borderline High Risk: LDL 130-159 MG/DL High Risk : LDL 160-189 MG/DL Very High Risk: LDL Greater than 189 MG/DL 32 Anion gap measurement may be of limited value in the presence of any alkalosis, especially in a combined acid base disorder. . 33 A metabolite of Naproxen, O-desmethylnaproxen, has been shown to interfere with the Jendrassik-Lisa method for measuring total bilirubin. Samples from patients who have taken Naproxen have shown spurious elevation in total bilirubin levels. 34 Because ethnic data is not always readily available, this report includes an eGFR for both -Americans and non- Americans. The National Kidney Disease Education Program (NKDEP) does not endorse the use of the MDRD equation for patients that are not between the ages of 18 and 70, are , have extremes of body size, muscle mass, or nutritional status, or are non- or non-. According to the National Kidney Foundation, irrespective of diagnosis, the stage of the disease is based on the level of kidney function: Stage Description GFR(mL/min/1.73 m(2)) 1 Kidney damage with normal or decreased GFR 90 2 Kidney damage with mild decrease in GFR 60- 89 3 Moderate decrease in GFR 30-59 4 Severe decrease in GFR 15-29 5 Kidney failure <15 (or dialysis) 35 CHOLESTEROL INTERPRETATION: Desirable: Less than 200 MG/DL Borderline-High Risk: 200-239 MG/DL High-Risk: 240 MG/DL and over 36 HDL INTERPRETATION: Undesirable: High Risk: Less than 40 MG/DL Desirable: Low Risk: Greater than 60 MG/DL 37 LDL INTERPRETATION: Low Risk Optimal Level: LDL Less than 100 MG/DL Near or Above Optimal: LDL 100-129 MG/DL Borderline High Risk: LDL 130-159 MG/DL High Risk : LDL 160-189 MG/DL Very High Risk: LDL Greater than 189 MG/DL Encounters Type Date Location Provider Dx Diagnosis Office Visit 09/20/2018 [facility] Hood Wallace MD H81.12 Benign paroxysmal 9:15a West RD vertigo, left ear Office Visit 08/18/2018 [facility] Selene Bowles, J06.9 Acute upper 10:45a [address] RD EXTRUDER TENDER respiratory infection, unspecified D48.5 Neoplasm of uncertain behavior of skin Office Visit 07/05/2018 [facility] Andrae J01.90 Acute sinusitis, 9:45a Medicine [place] ChangP unspecified RD Office Visit 01/26/2018 Urology Nancy Simmons, N20.0 Calculus of 3:15p M.D. kidney Office Visit 01/03/2018 Urology Nancy Simmons, N20.0 Calculus of 8:30a M.D. kidney Office Visit 10/06/2017 [facility] Andrae F41.1 Generalized 3:00p Medicine WINSOME Rivas anxiety disorder RD J30.9 Allergic rhinitis, unspecified Office Visit 09/16/2017 Family Abebe, Z00.01 Encounter for 2:00p Medicine WINSOME Rivas general adult RD medical exam w abnormal findings F41.1 Generalized anxiety disorder L84 Corns and callosities R10.84 Generalized abdominal pain Office Visit 03/31/2015 Family Abebe F43.23 Adjustment 3:15p Medicine WINSOME Rivas disorder with RD mixed anxiety and depressed mood Z23 Encounter for immunization Plan of Treatment Future Appointment(s):01/25/2019 4:00 pm - Nancy Simmons M.D. at [id number] - Charlene Abebe FNPK21.9 Gastroesophageal reflux diseaseNew Medication:Omeprazole 20 mg - 1 by mouth every dayComments:start OmeprazoleDiscussed GERD diet: avoid hot spicy foods, tomato based products, acidic foods suchas orange juice as well as spearmint and peppermint (this includes chewing gum). Avoid tight fitting clothing and belts, as these delay emptying of the stomach. Don't lay down for 2 hours after eating, and try to eat smaller meals, adding in small snacks between. Raising the head of the bed by several inches may also help night time symptoms.M25.50 Multiple joint painNew Medication:Naproxen 500 mg - take one tablet by mouth twice a dayComments:Due + FHx of RA will start work upbilateral hand x-rays labs as ordered
--- OUTSIDE RECORDS SUMMARY | 2018-11-27 07:26 | XMS REPORT | Continuity of Care Document ---
:1980 External Reference #:[id number] Author Name Charlene Abebe FNP Address [address] [place] [id number] Care Team Providers Name Role Phone Charlene Abebe, JAZMINE Care Team Information Collar Pointer Unavailable Charlene Abebe, ROOFING MACHINE OPERATOR Primary Care Physician Unavailable Payers Date Identification Numbers Payment Provider Subscriber Effective: 2013 Policy Number: [id number] Jessika Mcneill PayID: [id number] [place] [address] Expires: 2013 Policy Number: [id number] Jessika Mcneill Group Name: Lance Huffman [address] PayID: [id number] [place] [address] Problems Active Problems Provider Date Gastroesophageal reflux [...] Diet Patient follows no dietary restrictions Occupation Subtextual ETOH Use Drinks Alcoholic Beverages Occasionally Tobacco Use Start: Unknown Patient has never smoked Recreational Drug Use Never Used Drugs Smoking Status Reviewed: 11/13/18 Patient has never smoked Allergies, Adverse Reactions, Alerts Description No Known Drug Allergies Medications Active Medications SIG Qnty Indications Ordering Date Provider Naproxen take one 60tabs M25.[address] [place], 10/19/2018 500mg Tablets tablet by Charlene, mouth twice a INTERNET SYSTEMS ADMINISTRATOR day Meclizine HCL 1 tab by mouth 60tabs H81.12 Hood Wallace MD 09/20/2018 25mg Tablets twice a day Qnasl [place] 1 [place] 26.1units J30.[address] [place] [address] [place], 10/06/2017 80mcg/Act Aerosol In Each [place], Nostril Once A INTERNET SYSTEMS ADMINISTRATOR Day Buspirone HCL Take One To 60tabs F41.[address] [place], 09/16/2017 5mg Tablets Two Tablets By Charlene, Mouth Twice A INTERNET SYSTEMS ADMINISTRATOR Day as Needed For Anxiety And Panic Attacks Paroxetine HCL Take One 30tabs [place], 08/24/2016 40mg Tablets Tablet By Charlene, Mouth Every INTERNET SYSTEMS ADMINISTRATOR Day Levocetirizine 1 by mouth 90tabs [place], Dihydrochloride every night Charlene, 5mg Tablets INTERNET SYSTEMS ADMINISTRATOR Multivitamin 1 tab po daily Unknown History Medications Omeprazole 1 by mouth 90caps K21.9 Charlene Abebe, 10/19/2018 - 20mg every day INTERNET SYSTEMS ADMINISTRATOR 11/13/[address] Augmentin 1 by mouth 20tabs J01.90 Charlene Abebe, 07/05/2018 - 500-125mg twice a day INTERNET SYSTEMS ADMINISTRATOR 07/15/2018 Tablets Tamsulosin HCL Once Daily 10caps Unknown 01/01/2018 - 01/26/2018 0.4mg Capsules Amoxicillin 1 by mouth 14tabs Shirley Orlando MD 09/09/2015 - 875mg twice a day 09/19/2015 Tablets Omeprazole take one 30caps Charlene Abebe, 08/12/2014 - 20mg capsule by [facility] 09/16/[address] mouth every day [facility] Laxative 1 po bid 60tabs Yazmin Altamirano, 01/16/2013 - 03/31/2015 625mg Tablets Qnasl one spray to Yazmin Altamirano, - 80mcg/Act each nostril 03/31/2015 Aerosol every day Paroxetine HCL Take Two 60tabs Charlene Abebe, - 20mg Tablets By [facility] 08/24/2016 Tablets Mouth Every Day Immunizations CPT Code Status Date Vaccine Lot # [id number] Given 03/17/2018 Influenza Virus Vaccine, Quadrivalent, 36 Mos+, .5ML 63388 Given 03/25/2017 Influenza Virus Vaccine, Quadrivalent, Slit Virus, [place] Use 63679 Given 04/02/2016 Influenza Virus Vaccine Split Virus Use For Individual 3Yr Older [id number] Given 03/31/2015 Influenza Vaccine (Fluzone) Age 3 And Older [id number] Given 03/31/2015 Tdap injection [id number] 84034 Given 04/16/2014 flu vaccination 22455 Given 04/11/2013 flu vaccination 29753 Given 03/14/2012 flu vaccination Vital Signs Date Vital Result Comment 11/13/2018 2:54pm BP Systolic 116 mmHg BP Diastolic 68 mmHg Heart Rate 76 /min Respiratory Rate 15 /min Height 67 inches 5'7" Weight 158.00 lb BMI (Body Mass Index) 24.7 kg/m2 BSA (Body Surface Area) 1.83 m2 [place] body weight in kilograms 67 kg O2 % BldC Oximetry 97 % 10/19/2018 11:20am BP Systolic 114 mmHg BP Diastolic 72 mmHg Body Temperature 97.9 F Heart Rate 77 /min Respiratory Rate 18 /min Height 67 inches 5'7" Weight 153.25 lb BMI (Body Mass Index) 24.0 kg/m2 BSA (Body Surface Area) 1.81 m2 [place] body weight in kilograms 67 kg O2 % BldC Oximetry 97 % Ra 09/20/2018 9:04am BP Systolic 118 mmHg BP Diastolic 76 mmHg Body Temperature 97.0 F Heart Rate 83 /min Height 67 inches 5'7" Weight 153.00 lb BMI (Body Mass Index) 24.0 kg/m2 BSA (Body Surface Area) 1.80 m2 [place] body weight in kilograms 67 kg O2 [...] Rate 16 /min Height 67 inches 5'7" [place] body weight in kilograms 67 kg O2 % BldC Oximetry 97 % Pain Level 0 01/03/2018 8:05am BP Systolic 120 mmHg BP Diastolic 83 mmHg Body Temperature 98.1 F Heart Rate 73 /min Respiratory Rate 18 /min Height 67 inches 5'7" Weight 153.00 lb BMI (Body Mass Index) 24.0 kg/m2 BSA (Body Surface Area) 1.80 m2 [place] body weight in kilograms 67 kg O2 % BldC Oximetry 98 % Pain Level 2 intemittent rt flank 10/06/2017 3:14pm BP Systolic Sitting Left Arm 120 mmHg BP Diastolic Sitting Left Arm 72 mmHg Heart Rate 80 /min Respiratory Rate 18 /min Height 67 inches 5'7" Weight 153.00 lb BMI (Body Mass Index) 24.0 kg/m2 BSA (Body Surface Area) 1.80 m2 [place] body weight in kilograms 67 kg 09/16/2017 1:58pm BP Systolic Sitting Left Arm 112 mmHg BP Diastolic Sitting Left Arm 72 mmHg Heart Rate 88 /min Respiratory Rate 18 /min Height 67 inches 5'7" Weight 147.38 lb BMI (Body Mass Index) 23.1 kg/m2 BSA (Body Surface Area) 1.78 m2 [place] body weight in kilograms 67 kg 03/31/2015 [...] Result H/L Range Note Rheumatoid Panel 10/19/[address] Sedimentation Rate 8 mm/hr N 2-40 1, 2 ([facility]) [address] [place] [address] [phone] Uric Acid 6.2 mg/dL N 3.5-7.2 Rheumatoid Factor Screen < 10.0 IU/mL N 0.0-15.0 C-Reactive Protein,Quant < 3.0 mg/L <3.0 Antinuclear Antibodies, Ifa Negative . 3 Lyme AB/Western 10/19/[address] Lyme Total < 0.91 ISR 0.00- 0.90 4 Blot Reflex [address] [place] [address] AB/Reflex To WB [place], [place] [id number] [phone] Lyme Disease Antibody,QT,Igm < 0.80 index 0.00-0.79 5 CBC 10/19/[address] White Blood Count 12.5 K/uL High 3.4- 10.[address] [place] [address] [phone] Red Blood Count 5.41 M/uL N 4.20-5.80 [...] < 10/ 100 WBC Systemic Lupus 10/19/[address] [facility] [address] Ra Latex <10.0 IU/mL 0.0- 13.9 Erythem. Profil [address] [place] [address] [place] [address] [phone] Anti-Dna Antibody ([place]) <1 IU/mL 0-9 6 SM Antibody <0.2 AI 0.0-0.9 FIRE CAPTAIN MARINE Antibody <0.2 AI 0.0-0.9 Sjogrens Antibodies (Ssa) <0.2 AI 0.0-0.9 Antichromatin Antibodies <0.2 AI 0.0-0.9 Sjogrens Antibodies (SSB) <0.2 AI 0.0-0.9 Laboratory test finding 10/19/[address] [facility] [address] Calcium 9.2 mg/dL N 8.5-10.[address] [place] [address] [phone] Total Protein 7.8 g/dL N 6.4-8.2 Albumin 4.1 g/dL N 3.4-5.0 Alb/Glob 1.1 ratio Alkaline Phosphatase 100 U/L N 45-117 Globulin 3.7 g/dL N 1.9-4.3 Laboratory 06/04/2018 [facility] Rapid Strep POSITIVE Abnormal Negative 7 test finding [phone] Molecular Calculi,Urinar 01/26/2018 [facility] Color Brown . 8 y,With Photo [address] [place] [address] [phone] Size 4x3x2 mm . Weight 21.9 mg [...] sodium 142 136-145 measurement measurement Comprehensive 01/01/2018 [facility] Glucose 108 High 74-106 16 Metabolic Panel [address] mg/dL [place], [place] [id number] [phone] BUN 12 mg/dL N 7-18 Creatinine 1.1 [...] U/L N 45-117 CBS W/Automated Diff 01/01/2018 [facility] White Blood 8.3 K/uL N 3.4-10.[address] [place] [address] [phone] Red Blood Count 5.10 M/uL N 4.20-5.80 [...] 33.0-73.0 Lymph % 24.4 % N 20.0-42.0 Perkins % 7.7 % N 0.0-10.0 Eo% 3.0 % N 0.0-6.6 Bas% 0.4 % N 0.0-1.1 Neut# 5.36 K/uL N 1.8-7.0 Lymph # 2.03 K/uL N 1.0-4.0 Perkins # 0.64 K/uL N 0.0-0.8 Eos # 0.25 K/uL N 0.0-0.5 Baso # 0.03 K/uL N 0.0-0.1 Laboratory 01/01/2018 [facility] Lipase 138 U/L N 56-289 test finding [address] [place] [address] [phone] Alt SerPl-cCnc 01/01/2018 N2N/CCD Import Alt SerPl-cCnc [...] hemoglobin measurement measurement (mass/volume) (mass/volume) Laboratory 11/14/2017 [facility] Rapid Strep Negative Negative 18 test finding [phone] Molecular LDL 09/16/[address] Cholesterol 245 mg/dL High <200 19, Cholesterol [address] [place] [address] [phone] Triglycerides 124 mg/dL <150 21 HDL Cholesterol 67 mg/dL >40 22 LDL-Cholesterol 153 mg/dL < 100 23 Comprehensive Metabolic 09/16/[address] Glucose 80 mg/dL N 74 -106 Panel [address] [place] [address] [phone] BUN 15 mg/dL N 7-18 Creatinine 1.0 [...] by calculation (mass/volume) CBC Auto Diff 02/16/2016 [facility] White Blood Count 7.7 N 3.5-10.8 25 [phone] 10^3/uL Red Blood Count 5.15 10^6/uL N [...] Cells % 0 N Basic Metabolic 02/16/2016 [facility] Sodium 139 mmol /L N 133-145 Panel [phone] Chloride 104 mmol/L N 101-111 Co2 Carbon [...] MIU/ML 0.34-5.60 finding CBC Auto Diff 01/11/2012 N2N/CCD Import Abs Basophils 0 0-0.2 Abs Eosinophils [...] 7.7 CUMM 4.8-10.8 Comp Metabolic Panel 01/11/2012 N2N/CCD Import Albumin 4.3 GM/DL 3.6- 5.4 Albumin/Globulin [...] <1:80 Borderline 1:80 Positive >1:80 Performed at: RN - [facility] [address] [id number] Director Of Early Childhood Education: Rupinder Jarrell MD, Phone: [phone] 4 Negative <0.91 Equivocal 0.91 - 1.09 Positive >1.09 5 Negative <0.80 Equivocal 0.80 - 1.19 Positive >1.19 IgM levels may peak at 3-6 weeks post infection, then gradually decline. 6 Negative <5 Equivocal 5 - 9 Positive >9 7 Security Systems Sales Representative: [id number] N20.0 9 Percentage (Represents the % composition) 10 No Nidus visualized 11 Blood was observed on exterior of specimen. 12 Photograph will follow under separate cover. 13 Physician questions regarding Calculi Analysis contact [employer] at: [phone]. 14 Calculi report with photograph will follow via computer, mail or medical supervisor delivery. 15 This test was developed and its performance characteristics determined by [employer]. It has not been cleared or approved by the Food and Drug Administration. Performed at: [address] [id number] Director Of Early Childhood Education: Cole Vail MD, Phone: [phone] 16 LOWER BACK PAIN/ ABD PAIN 17 [...] information may be found at www.kdoqi.org. 18 Security Systems Sales Representative: [id number] 19 L84 20 Reference Guidelines*: Desirable: ........... [...] information may be found at www.kdoqi.org. 25 [id number] 26 Because ethnic data is not always [...] primary infection with EBV. Test Performed by: [address] [address] Fuel Verification Technician: John Robison III, M.D. 28 Y 29 [...] Date Location Provider Dx Diagnosis Office Visit 10/19/2018 Family Delmy Abebe, K21.9 Gastro-esophageal 11:45a [address] Charlene, reflux disease INTERNET SYSTEMS ADMINISTRATOR without esophagitis M25.50 Pain in unspecified joint Office Visit 09/20/2018 9:15a [facility] Medicine Hood Wallace, H81.[address] vertigo, left ear Office Visit 08/18/2018 10:45a [facility] Medicine Selene Bowles, J06.[address] INTERNET SYSTEMS ADMINISTRATOR respiratory infection, unspecified D48.5 Neoplasm of uncertain behavior of skin Office Visit 07/05/2018 Family Abebe, J01.90 Acute sinusitis, 9:45a Medicine WINSOME Rivas unspecified RD Office Visit 01/26/2018 Urology Nancy Simmons, N20.0 Calculus of 3:15p M.D. kidney Office Visit 01/03/2018 Urology Nancy Simmons, N20.0 Calculus of 8:30a M.D. kidney Office Visit 10/06/2017 Family Abebe, F41.1 Generalized 3:00p Medicine WINSOME Rivas anxiety disorder RD J30.9 Allergic rhinitis, unspecified Office Visit 09/16/2017 Family Abebe, Z00.01 Encounter for 2:00p Medicine WINSOME Rivas general adult RD medical exam w abnormal findings F41.1 Generalized anxiety disorder L84 Corns and callosities R10.84 Generalized abdominal pain Office Visit 03/31/2015 Family Abebe, F43.23 Adjustment 3:15p Medicine WINSOME Rivas disorder with RD mixed anxiety and depressed mood Z23 Encounter for immunization Plan of Treatment Future Appointment(s):01/25/2019 4:00 pm - Nancy Simmons M.D. at [id number]/2019 - Charlene Abebe, FNPM79.644 Pain in right finger(s)Comments:4th finger PIPJ pain and tenderness in setting of RT hand dominanceall labs as noted above negativeX-ray negativeReferral:Beryl Hurtado MD, Surgery, OrthopedicFollow up:As needed and for yearly physical exams/yearly follow up of anxiety/depression Recommend yearly flu shot come feb/.9 Gastroesophageal reflux diseaseComments:resolvedMedication list updatedIf pain returns, remember you can use over the counter Tums Rolaids on occasions, however first line treatment is avoiding foods that cause symptoms
[2018-11-27 07:33] VITALS: BP 105/80
--- NOTE | 2018-11-27 07:40 | UC ---
Throat Pain/Nasal Glenn HPI - HPI Summary HPI Summary: 38-year-old male comes in with a chief complaint of 2 weeks of upper respiratory tract infection symptoms. Started with a sore throat 2 weeks ago he 's having nasal congestion and postnasal drip. The postnasal drip is continued. His been using Xyzal as he does have environmental allergies. No fevers no shortness of breath chest tightness. The last day things got worse with year pressure and sinus congestion. - History of Current Complaint Chief Complaint: UCRespiratory Stated Complaint: SORE THROAT Time Seen by Provider: 11/27/18 07:34 Pain Intensity: 6 - Allergies/Home Medications Allergies/Adverse Reactions: Allergies Allergy/AdvReac Type Severity Reaction Status Date / Time environmentaL Allergy sinuses Uncoded 11/27/18 07:28 PMH/Surg Hx/FS Hx/Imm Hx Previously Healthy: Yes - Surgical History Surgical History: Yes Surgery Procedure, Year, and Place: ROTATOR CUFF REPAIR- LEFT. SURGERY RIGHT MIDDLE FINGER - Family History Known Family History: Positive: Cardiac Disease, Hypertension Negative: Diabetes - Social History Alcohol Use: Rare Substance Use Type: None Smoking Status (MU): Never Smoked Tobacco - Immunization History Most Recent Influenza Vaccination: March 2014 Review of Systems All Other Systems Reviewed And Are Negative: Yes Constitutional: Positive: Negative Skin: Positive: Negative Eyes: Positive: Negative ENT: Positive: Sore Throat, Ear Ache, Nasal Discharge, Sinus Congestion Respiratory: Positive: Negative Cardiovascular: Positive: Negative Gastrointestinal: Positive: Negative Motor: Positive: Negative Neurovascular: Positive: Negative Musculoskeletal: Positive: Negative Neurological: Positive: Negative Psychological: Positive: Negative Is Patient Immunocompromised?: No Physical Exam Triage Information Reviewed: Yes Appearance: Well-Appearing, No Pain Distress, Well-Nourished Vital Signs: Initial Vital Signs Temp 97.6 F 11/27/18 07:29 Pulse 80 11/27/18 07:29 Resp 16 11/27/18 07:29 BP 105/80 11/27/18 07:29 Pulse Ox 99 11/27/18 07:29 Vital Signs Reviewed: Yes Eye Exam: Normal Eyes: Positive: Conjunctiva Clear ENT: Positive: Pharynx normal, Nasal congestion, TMs normal Neck: Positive: Supple Respiratory: Positive: Lungs clear, Normal breath sounds, No respiratory distress Cardiovascular: Positive: RRR Musculoskeletal Exam: Normal Musculoskeletal: Positive: Strength Intact, ROM Intact Neurological Exam: Normal Neurological: Positive: Alert, Muscle Tone Normal Psychological: Positive: Age Appropriate Behavior Skin Exam: Normal Throat Pain/Nasal Course/Dx - Differential Dx/Diagnosis Provider Diagnosis: Sinusitis Discharge - Sign-Out/Discharge Documenting (check all that apply): Patient Departure All imaging exams completed and their final reports reviewed: No Studies - Discharge Plan Condition: Stable Disposition: HOME Prescriptions: Amoxicillin PO (*) [Amoxicillin 875 MG (*)] 875 mg PO BID #20 tab Patient Education Materials: Sinusitis (ED) Referrals: Renetta Abebe NP [Primary Care Provider] - Additional Instructions: FOLLOW UP WITH YOUR DOCTOR IF NOT COMPLETELY IMPROVED. GET RECHECKED SOONER IF YOUR CONDITION WORSENS OR ANY QUESTIONS OR CONCERNS. - Billing Disposition and Condition Condition: STABLE Disposition: Home
== END 2018-11-27 07:44 | disposition home or self-care (01) ==
LOC: UCCORT 07:15
DX: J32.9 Chronic sinusitis, unspecified (principal); R09.81 Nasal congestion; J02.9 Acute pharyngitis, unspecified
CPT/HCPCS: 99212; G0463

== ENCOUNTER 2019-03-05 07:33 | Emergency (ER) | payer BC ==
--- OUTSIDE RECORDS SUMMARY | 2019-03-05 07:48 | XMS REPORT | Continuity of Care Document ---
:1980 External Reference #:[id number] Author Name Hood Wallace MD Address [address] [place] [id number] Care Team Providers Name Role Phone Sana Culver MD - Family Care Team Information Community Organization Worker [phone] Medicine Charlene Abebe NP - Nurse Care Team Information Community Organization Worker [phone] Practitioner Problems Active Problems Provider Date Gastroesophageal reflux [...] Kidney stone Nancy Simmons M.D. Onset: 01/03/2018 Family planning education, guidance, and Nancy Simmons M.D. Onset: 2018 counseling Social History Type Date Description Comments Sex Unknown ETOH Use Drinks Alcoholic Beverages Occasionally Tobacco Use Start: Unknown Patient has never smoked Recreational Drug Use Never Used Drugs Smoking Status Reviewed: 02/27/19 Patient has never smoked Allergies, Adverse Reactions, Alerts Description No Known Drug Allergies Medications Active Medications SIG Qnty Indications Ordering Date Provider Naproxen take one 60tabs M25.50 Andrae, 10/19/2018 500mg Tablets tablet by valentina Chang twice a FILM PRINTER day Meclizine HCL 1 tab by mouth 60tabs H81.12 [place], 09/20/2018 25mg Tablets twice a day MALLORIE ChangP Qnasl [place] 1 [place] 26.1units J30.9 [place], 10/06/2017 80mcg/Act [facility]erosol In Each [facility] Nostril Once A FILM PRINTER Day Buspirone HCL Take One To 60tabs F41.1 [place], 09/16/2017 5mg Tablets Two Tablets By Charlene Mouth Twice A FILM PRINTER Day as Needed For Anxiety And Panic Attacks Paroxetine HCL Take One 30tabs [place], 08/24/2016 40mg Tablets Tablet By Charlene, Mouth Every FILM PRINTER Day Levocetirizine 1 by mouth 90tabs [place], Dihydrochloride every night Charlene 5mg Tablets [facility] Multivitamin 1 tab po daily Unknown History Medications Omeprazole 1 by mouth 90caps K21.9 [place], [facility] 10/19[facility]2018 - 20mg every day [facility] 11/13/2018 Capsules Immunizations CPT Code Status Date Vaccine Lot # [id number] Given 03/17/2018 Influenza Virus Vaccine, Quadrivalent, 36 Mos+, .5ML 95594 Given 03/25/2017 Influenza Virus Vaccine, Quadrivalent, [place] Virus[place] Use [address] Given 04/02/2016 Influenza Virus Vaccine Split Virus Use For Individual 3Yr Older [id number] Given 03/31/2015 Influenza Vaccine (Fluzone) Age 3 And Older [id number] 49967 Given 03/31/2015 Tdap injection [id number] 53577 Given 04/16/2014 flu vaccination 46511 Given 04/11/2013 flu vaccination 44985 Given 03/14/2012 flu vaccination Vital Signs Date Vital Result Comment 02/27/2019 10:41am BP Systolic 112 mmHg BP Diastolic 75 mmHg Body Temperature 98.7 F Heart Rate 100 /min Respiratory Rate 18 /min Height 67 inches 5'7" Weight 157.50 lb BMI (Body Mass Index) 24.7 kg/m2 BSA (Body Surface Area) 1.83 m2 [place] body weight in kilograms 67 kg O2 % BldC Oximetry 96 % Ra 01/19/2019 12:43pm BP Systolic 114 mmHg BP Diastolic 79 mmHg Body Temperature 97.2 F Heart Rate 77 /min Respiratory Rate 16 /min Height 67 inches 5'7" Weight 158.38 lb BMI (Body Mass Index) 24.8 kg/m2 BSA (Body Surface Area) 1.83 m2 [place] body weight in kilograms 67 kg O2 % BldC Oximetry 98 % Pain Level 3 Discomfort from Vasectomy Results Test Date Facility Test Result H/L Range Note Rheumatoid Panel 10/19/[address] Sedimentation Rate 8 mm/hr Normal 2-40 1, 2 ([facility]) [address] [place] [address] [phone] Uric Acid 6.2 mg/dL Normal 3.5-7.2 Rheumatoid Factor Screen < 10.0 IU/mL Normal 0.0-15.0 C-Reactive Protein,Quant < 3.0 mg/L <3.0 Antinuclear Antibodies, Ifa Negative . 3 Lyme AB/Western 10/19/[address] Lyme Total < 0.91 ISR 0.00- 0.90 4 Blot Reflex [address] [place] [address] AB/[place] [address] [phone] Lyme Disease Antibody,QT,Igm < 0.80 index 0.00-0.79 5 CBC 10/19/[address] White Blood Count 12.5 K/uL High 3.4- 10.[address] [place] [address] [phone] Red Blood Count 5.41 M/uL Normal 4.20-5.80 Hemoglobin 16.6 gm/dL Normal 12.8-17.0 Hematocrit 49.5 % High 38.0-48.0 Mean Cell Volume 91.5 fl Normal 80.0-96.0 Mean Corpuscular HGB 30.7 pg Normal 27.0-33.0 Mean Corpuscular HGB Conc 33.5 g/dL Normal 31.7-36.0 Platelet Count 300 K/uL Normal 155-360 Red Cell Distri Width SD 44.5 fl Normal 36-51 Red Cell Distri Width %CV 13.2 % Normal 11.6-15.8 Mean Platelet Volume 12.2 fl High 6.6-10.6 NRBC % 0.0 /100WBC < 10/ 100 WBC Systemic Lupus 10/19/[address] Ra Latex <10.0 IU/mL 0.0- 13.9 Erythem. Profil [address] [facility] [place] [address] [phone] Anti-Dna Antibody ([place]) <1 IU/mL 0-9 6 SM Antibody <0.2 AI 0.0-0.9 SAS PROGRAMMER Antibody <0.2 AI 0.0-0.9 Sjogrens Antibodies (Ssa) <0.2 AI 0.0-0.9 Antichromatin Antibodies <0.2 AI 0.0-0.9 Sjogrens Antibodies (SSB) <0.2 AI 0.0-0.9 Laboratory test 10/19/[address] [address] Calcium 9.2 mg/dL Normal 8.5- 10.1 finding [address] [place] [address] [phone] Total Protein 7.8 g/dL Normal 6.4-8.2 Albumin 4.1 g/dL Normal 3.4-5.0 Alb/Glob 1.1 ratio Alkaline Phosphatase 100 U/L Normal 45-117 Globulin 3.7 g/dL Normal 1.9-4.3 1 M25.50 2 This result was obtained with an ESR method that is not based on the standard Westergren Method. When comparing results obtained from the traditional Westergren ESR and this method it is important to refer to the reference range for each method. Method: Capillary Photometry 3 Negative <1:80 Borderline 1:80 Positive >1:80 Performed at: - [facility] [address] [id number] Livestock Judging Coach: Rupinder Jarrell MD, Phone: [phone] 4 Negative <0.91 Equivocal 0.91 - 1.09 Positive >1.09 5 Negative <0.80 Equivocal 0.80 - 1.19 Positive >1.19 IgM levels may peak at 3-6 weeks post infection, then gradually decline. 6 Negative <5 Equivocal 5 - 9 Positive >9 Procedures Date Code Description Status 01/05/2019 77176 Vasectomy, unilat or bilat Completed Medical Devices Description No Information Available Encounters Type Date Location Provider Dx Diagnosis Office Visit 02/27/2019 Family Medicine Hood Wallace MD J06.9 Acute upper 10:50a [facility] respiratory infection, unspecified Office Visit 12/19/2018 Urology Iris, Mahmoud, Z30.2 Encounter for 3:30p M.DStefani sterilization Office Visit 11/13/2018 [facility] Medicine Andrae M79.644 Pain in right 2:45p [address] Charlene, finger(s) FILM PRINTER K21.9 Gastro-esophageal reflux disease without esophagitis Office 10/19/2018 Family Andrae K21.9 Gastro-esophageal Visit 11:45a Medicine [place] WINSOME Chang reflux disease RD without esophagitis M25.50 Pain in unspecified joint Office Visit 09/20/2018 9:15a [facility] Medicine Hood Wallace H81.[address] vertigo, left ear Assessments Date Code Description Provider 02/27/2019 J06.9 Acute upper respiratory infection, Hood Wallace MD unspecified 01/19/2019 Z30.2 Encounter for sterilization Issac Lee PA 01/05/2019 Z30.2 Encounter for sterilization Nancy Simmons M.D. 12/19/2018 Z30.2 Encounter for sterilization Nancy Simmons M.D. 11/13/2018 M79.644 Pain in right finger(s) Charlene Abebe FNP 11/13/2018 K21.9 Gastroesophageal reflux disease Charlene Abebe FNP 10/19/2018 K21.9 Gastroesophageal reflux disease Charlene Abebe FNP 10/19/2018 M25.50 Multiple joint pain Charlene Abebe FNP 09/20/2018 H81.12 Benign paroxysmal vertigo, left ear Hood Wallace MD Plan of Treatment No Information Available Functional Status Functional Condition Comment Date Status none Active Mental Status Description No Information Available Referrals Refer to Reason for Referral Status Appt Date Beryl Hurtado MD 38 YOM with pain and tenderness Patient Declined of 1st PIPJ 4th finger RT hand in RT hand dominant male. Pain increases w/use. [address] [place] [address] [phone]
--- OUTSIDE RECORDS SUMMARY | 2019-03-05 07:48 | XMS REPORT | Continuity of Care Document ---
:1980 External Reference #:[id number] Author Name Issac Lee PA Address [address] [facility], [address] [place] [address] Care Team Providers Name Role Phone Sana Culver MD - Family Care Team Information Software Engineer Developer [phone] Medicine Charlene Abebe DEPUTY JAILER - Nurse Care Team Information Software Engineer Developer Practitioner Problems Active Problems Provider Date Gastroesophageal [...] Use Never Used Drugs Smoking Status Reviewed: 01/05/19 Patient has never smoked Allergies, Adverse Reactions, Alerts Description No Known Drug Allergies Medications Active Medications SIG Qnty Indications Ordering Date Provider Naproxen take one 60tabs M25.50 Andrae, 10/19/2018 500mg Tablets tablet by Jenniferleigh, mouth twice a PERMASTONE APPLICATOR day Meclizine HCL 1 tab by mouth 60tabs H81.12 [place], 09/20/2018 25mg Tablets [facility] a [facility] martins[facility] Qnasl [place] 1 [place] 26.1units J30.9 [place], 10/06/2017 80mcg/Act Aerosol In Each [facility], Nostril Once A [facility] Day Buspirone HCL Take One To 60tabs F41.1 [place], 09/16/2017 5mg Tablets Two Tablets By Charlene, Mouth Twice A PERMASTONE APPLICATOR Day as Needed For Anxiety And Panic Attacks Paroxetine HCL Take One 30tabs [place], 08/24/2016 40mg Tablets Tablet By Charlene, Mouth Every PERMASTONE APPLICATOR Day Levocetirizine 1 by mouth 90tabs [place], Dihydrochloride every night Charlene, 5mg Tablets [facility] Multivitamin 1 tab po daily Unknown History Medications Omeprazole 1 by mouth 90caps K21.9 [facility] 10/19/2018 - 20mg every day [facility] 11/13/[address] [place] CPT Code Status Date Vaccine Lot # [id number] Given 03/17/2018 Influenza Virus Vaccine, Quadrivalent, 36 Mos+, .5ML 64241 Given 03/25/2017 Influenza Virus Vaccine, Quadrivalent, [place] Virus, [place] Use [address] Given 04/02/2016 Influenza Virus Vaccine Split Virus Use For Individual 3Yr Older [id number] Given 03/31/2015 Influenza Vaccine (Fluzone) Age 3 And Older [id number] 73120 Given 03/31/2015 Tdap injection [id number] 10926 Given 04/16/2014 flu vaccination 77150 Given 04/11/2013 flu vaccination 62680 Given 03/14/2012 flu vaccination Vital Signs Date Vital Result Comment 01/19/2019 12:43pm BP Systolic 114 mmHg BP Diastolic 79 mmHg Body Temperature 97.2 F Heart Rate 77 /min Respiratory Rate 16 /min Height 67 inches 5'7" Weight 158.38 lb BMI (Body Mass Index) 24.8 kg/m2 BSA (Body Surface Area) 1.83 m2 [place] body weight in kilograms 67 kg O2 % BldC Oximetry 98 % Pain Level 3 Discomfort from Vasectomy 01/05/2019 9:40am BP Systolic 112 mmHg BP Diastolic 80 mmHg Body Temperature 96.5 F Heart Rate 83 /min Respiratory Rate 17 /min Height 67 inches 5'7" Weight 156.25 lb BMI (Body Mass Index) 24.5 kg/m2 BSA (Body Surface Area) 1.82 m2 [place] body weight in kilograms 67 kg O2 % BldC Oximetry 98 % Pain Level 0 Results Test Date Facility Test Result H/L Range Note Rheumatoid Panel 10/19/[address] Sedimentation Rate 8 mm/hr Normal 2-40 1, 2 ([facility]) [address] [place] [phone] Uric Acid 6.2 mg/dL Normal 3.5-7.2 Rheumatoid Factor Screen < 10.0 IU/mL Normal 0.0-15.0 C-Reactive Protein,Quant < 3.0 mg/L <3.0 Antinuclear Antibodies, Ifa Negative . 3 Lyme AB/Western 10/19/[address] Lyme Total < 0.91 ISR 0.00- 0.90 4 Blot Reflex [address] [place] [address] AB/Reflex To WB [place], [place] [address] [phone] Lyme Disease Antibody,QT,Igm < 0.80 index 0.00-0.79 5 CBC 10/19/[address] White Blood Count 12.5 K/uL High 3.4- 10.[address] [place] [phone] Red Blood Count 5.41 M/uL Normal 4.20-5.80 [...] < 10/ 100 WBC Systemic Lupus 10/19/[address] Ra Latex <10.0 IU/mL 0.0- 13.9 Erythem. Profil [address] [facility] [place] [address] [phone] Anti-Dna Antibody ([place]) <1 IU/mL 0-9 6 SM Antibody <0.2 AI 0.0-0.9 PACK OPERATOR Antibody <0.2 AI 0.0-0.9 Sjogrens Antibodies (Ssa) <0.2 AI 0.0-0.9 Antichromatin Antibodies <0.2 AI 0.0-0.9 Sjogrens Antibodies (SSB) <0.2 AI 0.0-0.9 Laboratory test 10/19/[address] Calcium 9.2 mg/dL Normal 8.5- 10.1 finding [address] [place] [address] [phone] Total Protein 7.8 g/dL Normal 6.4-8.2 Albumin [...] Positive >1:80 Performed at: RN - [facility] [address] [id number] Sewing Machine Repairer Helper: Rupinder Jarrell MD, Phone: [phone] 4 Negative <0.91 Equivocal 0.91 - 1.09 Positive >1.09 5 Negative <0.80 Equivocal 0.80 - 1.19 Positive >1.19 IgM levels may peak at 3-6 weeks post infection, then gradually decline. 6 Negative <5 Equivocal 5 - 9 Positive >9 Procedures Date Code Description Status 01/05/2019 48525 Vasectomy, unilat or bilat Completed Medical Devices Description No Information Available Encounters Type Date Location Provider Dx Diagnosis Office Visit 12/19/2018 Urology Iris, Mahmoud, Z30.2 Encounter for 3:30p Josie sterilization Office Visit 11/13/2018 Family Medicine Andrae, M79.644 Pain in right 2:45p [address] RD Charlene, finger(s) PERMASTONE APPLICATOR K21.9 Gastro-esophageal reflux disease without esophagitis Office 10/19/2018 [facility] Andrae K21.9 Gastro-esophageal Visit 11:45a Medicine [place] WINSOME Chang reflux disease RD without esophagitis M25.50 Pain in unspecified joint Office Visit 09/20/2018 9:15a Family Medicine Hood Wallace, H81.[address] vertigo, left ear Office Visit 08/18/2018 10:45a Family Medicine Selene Bowles, J06.[address] PERMASTONE APPLICATOR respiratory infection, unspecified D48.5 Neoplasm of uncertain behavior of skin Assessments Date Code Description Provider 01/19/2019 Z30.2 Encounter for sterilization Issac Lee [...] paroxysmal vertigo, left ear Hood Wallace MD 08/18/2018 J06.9 Acute upper respiratory infection, Selene Bowles FNP unspecified 08/18/2018 D48.5 Neoplasm of uncertain behavior of skin Selene Bowles FNP Plan of Treatment 01/19/2019 - Issac Lee PAZ30.2 Encounter for sterilizationComments: Postoperative period is going as planned. Review semen analysis. He was given our for same. Birthcontrol until which time is determined to be a safe date Functional Status Functional Condition Comment Date Status none Active Mental Status Description No Information Available Referrals Refer to Reason for Referral Status Appt Date Beryl Hurtado MD 38 YOM with pain and tenderness Patient Declined of 1st PIPJ 4th finger RT hand in RT hand dominant male. Pain increases w/use. [address] [place] [address] [phone] Silverio Pretty PA Mole with irregular borders and itching/pain on Closed right scalp, has been present for years, unsure if growing in size. [facility] [address] [place] [address] [phone]
[2019-03-05 08:17] VITALS: BP 121/81
--- NOTE | 2019-03-05 08:31 | UC ---
General HPI - HPI Summary HPI Summary: pt c/o being ill x 1 week. he is c/o a headache, sinus congestion, ear pressure, sore throat and cough with congestion. occasional wheezing and sob. no cp or fever. no asthma. others at work with same. - History of Current Complaint Chief Complaint: UCRespiratory Stated Complaint: COLD SYMP/COUGH Time Seen by Provider: 03/05/19 08:20 Hx Obtained From: Patient Onset/Duration: Gradual Onset Timing: Constant Pain Intensity: 4 - Allergy/Home Medications Allergies/Adverse Reactions: Allergies Allergy/AdvReac Type Severity Reaction Status Date / Time environmentaL Allergy sinuses Uncoded 03/05/19 08:11 Home Medications: Home Medications Guaifen/Dextromethorphan/PE [Mucinex Fast-Max Severe C 5-10-200 mg] 1 tab PO Q4H PRN 03/05/19 [History Confirmed 03/05/19] Ibuprofen TAB* [Motrin TAB* 600 MG] 600 mg PO Q6H PRN 03/05/19 [History Confirmed 03/05/19] PMH/Surg Hx/FS Hx/Imm Hx - Additional Past Medical History Additional PMH: allergies Psychological History: Depression - Surgical History Surgical History: Yes Surgery Procedure, Year, and Place: Exploratory Right Middle Finger Surgery, 2013, [place]; Left Rotator Cuff, 2004, [place] - Family History Known Family History: Positive: Cardiac Disease, Hypertension Negative: Diabetes - Social History Occupation: Employed Full-time Lives: With Family Alcohol Use: Rare Substance Use Type: None Smoking Status (MU): Never Smoked Tobacco - Immunization History Most Recent Influenza Vaccination: March 2014 Review of Systems All Other Systems Reviewed And Are Negative: No Cardiovascular: Negative: Palpitations, Chest Pain Gastrointestinal: Negative: Vomiting, Diarrhea, Nausea Physical Exam Triage Information Reviewed: Yes Appearance: Well-Appearing Vital Signs: Initial Vital Signs Temp 97.9 F 03/05/19 08:10 Pulse 80 03/05/19 08:10 Resp 16 03/05/19 08:10 BP 121/81 03/05/19 08:10 Pulse Ox 99 03/05/19 08:10 Vital Signs Reviewed: Yes Eyes: Positive: Conjunctiva Clear ENT: Positive: Pharyngeal erythema - slight, Nasal congestion, TMs normal. Negative: Nasal drainage, Sinus tenderness Neck: Negative: Supple, Nontender, No Lymphadenopathy Respiratory: Positive: Lungs clear, No respiratory distress. Negative: Crackles , Rhonchi, Wheezing Cardiovascular: Positive: RRR, No Murmur Abdomen Description: Positive: Nontender Bowel Sounds: Positive: Present Musculoskeletal: Positive: ROM Intact Neurological: Positive: Alert Psychological: Positive: Age Appropriate Behavior Skin Exam: Normal Diagnostics - Laboratory Lab Results: rapid strep=neg Course/Dx - Differential Dx - Multi-Symptom Differential Diagnoses: Other - non toxic. no concern for pneumonia. antibiotic not indicated. - Diagnoses Provider Diagnosis: URI (upper respiratory infection), Bronchitis Discharge ED - Sign-Out/Discharge Documenting (check all that apply): Patient Departure All imaging exams completed and their final reports reviewed: No Studies - Discharge Plan Condition: Stable Disposition: HOME Prescriptions: Albuterol HFA INHALER* [Ventolin HFA Inhaler*] 2 puff INH Q6H #1 mdi predniSONE TAB* [Deltasone 20 MG TAB*] 40 mg PO DAILY 3 Days #6 tab Patient Education Materials: Upper Respiratory Infection (DC), Acute Bronchitis (ED) Referrals: Renetta Abebe NP [Primary Care Provider] - 7 Days - Billing Disposition and Condition Condition: STABLE Disposition: Home
== END 2019-03-05 09:08 | disposition home or self-care (01) ==
LOC: UCCORT 07:33
DX: J06.9 Acute upper respiratory infection, unspecified (principal); J40 Bronchitis, not specified as acute or chronic
CPT/HCPCS: 87651; 99212; G0463

== ENCOUNTER 2019-04-20 07:31 | Emergency (ER) | payer BC ==
[2019-04-20 07:50] VITALS: BP 113/86
--- NOTE | 2019-04-20 08:29 | UC ---
Throat Pain/Nasal Glenn HPI - HPI Summary HPI Summary: 38 yo male with 2 day hx sinus pressure and pain/nasal congestion and sore throat no fever no chills no myalgias no CP or SOB - History of Current Complaint Chief Complaint: UCGeneralIllness Stated Complaint: ST/TOTH Time Seen by Provider: 04/20/19 08:23 Hx Obtained From: Patient Onset/Duration: Sudden Onset Severity: Mild Pain Intensity: 4 Pain Scale Used: 0-10 Numeric Cough: None Associated Signs & Symptoms: Positive: Negative Related History: Seasonal Allergies - Allergies/Home Medications Allergies/Adverse Reactions: Allergies Allergy/AdvReac Type Severity Reaction Status Date / Time environmentaL Allergy sinuses Uncoded 03/05/19 08:11 Home Medications: Home Medications Terbinafine HCl 250 mg PO DAILY 04/20/19 [History Confirmed 04/20/19] PMH/Surg Hx/FS Hx/Imm Hx Previously Healthy: Yes - Surgical History Surgical History: Yes Surgery Procedure, Year, and Place: Exploratory Right Middle Finger Surgery, 2013, [place]; Left Rotator Cuff, 2004, [place] - Family History Known Family History: Positive: Cardiac Disease, Hypertension Negative: Diabetes - Social History Alcohol Use: Rare Substance Use Type: None Smoking Status (MU): Never Smoked Tobacco - Immunization History Most Recent Influenza Vaccination: March 2014 Review of Systems All Other Systems Reviewed And Are Negative: Yes Constitutional: Positive: Negative Skin: Positive: Negative Eyes: Positive: Negative ENT: Positive: Sore Throat, Nasal Discharge, Sinus Congestion, Sinus Pain/ Tenderness Respiratory: Positive: Negative Cardiovascular: Positive: Negative Gastrointestinal: Positive: Negative Genitourinary: Positive: Negative Motor: Positive: Negative Neurovascular: Positive: Negative Musculoskeletal: Positive: Negative Neurological: Positive: Negative Psychological: Positive: Negative Physical Exam Triage Information Reviewed: Yes Appearance: Well-Appearing, No Pain Distress, Well-Nourished Vital Signs: Initial Vital Signs Temp 98 F 04/20/19 07:44 Pulse 84 04/20/19 07:44 Resp 16 04/20/19 07:44 BP 113/86 04/20/19 07:44 Pulse Ox 99 04/20/19 07:44 Vital Signs Reviewed: Yes Eyes: Positive: Conjunctiva Clear ENT: Positive: Hearing grossly normal, Pharyngeal erythema, Nasal congestion, Nasal drainage, Uvula midline. Negative: Tonsillar swelling, Tonsillar exudate , Muffled voice, Hoarse voice, Sinus tenderness Dental Exam: Normal Neck: Positive: Supple, Nontender, No Lymphadenopathy Respiratory: Positive: Lungs clear, Normal breath sounds, No respiratory distress Cardiovascular: Positive: RRR, No Murmur Musculoskeletal: Positive: ROM Intact, No Edema Neurological: Positive: Alert Psychological Exam: Normal Diagnostics - Laboratory Lab Results: strep (-) Throat Pain/Nasal Course/Dx - Differential Dx/Diagnosis Provider Diagnosis: Rhinosinusitis Discharge ED - Sign-Out/Discharge Documenting (check all that apply): Patient Departure All imaging exams completed and their final reports reviewed: No Studies - Discharge Plan Condition: Stable Disposition: HOME Prescriptions: Fluticasone NASAL SPRAY 50MCG* [Flonase NASAL SPRAY 50MCG*] 2 spray BOTH NARES BID #1 btl Patient Education Materials: Rhinosinusitis (ED) Forms: *Work Release Referrals: Renetta Abebe NP [Primary Care Provider] - 4 Days (if not better ) - Billing Disposition and Condition Condition: STABLE Disposition: Home
== END 2019-04-20 09:08 | disposition home or self-care (01) ==
LOC: UCCORT 07:31
DX: J32.9 Chronic sinusitis, unspecified (principal); Z91.09 Other allergy status, other than to drugs and biological substances
CPT/HCPCS: 87651; 99212; G0463

== ENCOUNTER 2019-06-11 10:43 | Emergency (ER) | payer BC ==
--- OUTSIDE RECORDS SUMMARY | 2019-06-11 10:49 | XMS REPORT | Continuity of Care Document ---
:1980 External Reference #:[id number] Author Name Issac Lee PA Address [address], [address] [place] [address] Care Team Providers Name Role Phone Sana Culver MD - Family Care Team Information Stereotyper Helper [phone] Medicine Charlene Abebe NP - Nurse Care Team Information Stereotyper Helper Practitioner Problems Active Problems Provider Date Gastroesophageal [...] History Type Date Description Comments Sex Unknown Tobacco Use Start: Unknown Never Smoked Cigarettes Smoking Status Reviewed: 05/24/19 Never Smoked Cigarettes ETOH Use Drinks Alcoholic Beverages Occasionally Tobacco Use Start: Unknown Patient has never smoked Recreational Drug Use Never Used Drugs Exercise Type/Frequency Exercises sporadically Allergies, Adverse Reactions, Alerts Description No Known Drug Allergies Medications Active Medications SIG Qnty Indications Ordering Date Provider Terbinafine HCL 1 by mouth 84tabs Sg Aceves, 03/19/2019 250mg every day for DPM Tablets 84 days Naproxen take one 60tabs M25.50 [place], 10/19/2018 500mg Tablets tablet by Jenlakshmi, mouth twice a [employer]ILDR[employer]ITER[employer] PROFESSOR day Meclizine HCL 1 tab by mouth 60tabs H81.12 [place], 09/20/2018 25mg Tablets twice a day [place]IE [facility] [place] 1 [place] 26.1units J30.9 [place], 10/06/2017 80mcg/Act [facility] Once A CHILDREN'S LITER[employer] PROFESSOR Day Buspirone HCL Take One To 60tabs F41.1 [place], 09/16/2017 5mg Tablets Two Tablets By Jenniferjose, Mouth Twice A CHILDREN'S LITERATURE PROFESSOR Day as Needed For Anxiety And Panic Attacks Paroxetine HCL Take One 30tabs [place], 08/24/2016 40mg Tablets Tablet By Jenniferstephengh, Mouth Every CHILDREN'S LITERATURE PROFESSOR Day Levocetirizine 1 by mouth 90tabs [place], Dihydrochloride every night [facility], 5mg Tablets [facility] Multivitamin 1 tab po daily Unknown Albuterol Sulfate Karin Whitaker CLARICE Jaimes 108(90Base) mcg/Act Aerosol Immunizations CPT Code Status Date Vaccine Lot # [id number] Given 02/26/2019 Influenza Virus Vaccine, Quadrivalent, 36 Mos+, .5ML 28393 Given 03/17/2018 Influenza Virus Vaccine, Quadrivalent, 36 Mos+, .5ML 72240 Given 03/25/2017 Influenza Virus Vaccine, Quadrivalent, Slit Virus, [place] Use 93248 Given 04/02/2016 Influenza Virus Vaccine Split Virus Use For Individual 3Yr Older [id number] Given 03/31/2015 Influenza Vaccine (Fluzone) Age 3 And Older [id number] 40598 Given 03/31/2015 Tdap injection [id number] 39433 Given 04/16/2014 flu vaccination 21720 Given 04/11/2013 flu vaccination 47485 Given 03/14/2012 flu vaccination Vital Signs Date Vital Result Comment 05/24/2019 12:37pm BP Systolic Sitting Left Arm 124 mmHg BP Diastolic Sitting Left Arm 80 mmHg Body Temperature 97.3 F Heart Rate 79 /min Respiratory Rate 16 /min Height 68 inches 5'8" Weight 162.00 lb Pain Level 0 BMI (Body Mass Index) 24.6 kg/m2 BSA (Body Surface Area) 1.87 m2 [place] body weight in kilograms 70 kg O2 % BldC Oximetry 98 % 05/23/2019 10:03am BP Systolic 120 mmHg BP Diastolic 85 mmHg Body Temperature 98.5 F Heart Rate 88 /min Height 68 inches 5'8" Weight 158.00 lb BMI (Body Mass Index) 24.0 kg/m2 BSA (Body Surface Area) 1.85 m2 [place] body weight in kilograms 70 kg O2 % BldC Oximetry 95 % Results Test Acquired Date Facility Test Result H/L Range Note Liver Function 04/27/2019 [facility] Total Protein 7.5 g/dL Normal 6.4-8.2 [address] [place] [address] [phone] Albumin 4.1 g/dL Normal 3.4-5.0 Globulin 3.4 g/dL Normal 1.9-4.3 Alb/Glob 1.2 ratio Bilirubin,Total 0.4 mg/dL Normal 0.2-1.0 Bilirubin,Direct < 0.1 mg/dL Normal 0.0-0.2 Bilirubin,Indirect 0.3 mg/dL Normal 0.0-0.9 Sgot/Ast 17 U/L Normal 15-37 SGPT/Alt 35 U/L Normal 12-78 Alkaline Phosphatase 95 U/L Normal 45-117 Laboratory test 04/20/2019 [facility] Rapid Strep Negative Negative 2 finding [phone] Molecular Semen Post 03/23/2019 [facility] Volume 4.6 mL Not Estab. 3 Vasectomy [address] [place], [place] [id number] [phone] Post-Vas Sperm, Qual Present Absent 4 Liver Function 03/16/2019 [facility] Total Protein 7.3 g/dL Normal 6.4-8.2 5 [address] [place] [address] [phone] Albumin 3.8 g/dL Normal 3.4-5.0 Globulin 3.5 g/dL Normal 1.9-4.3 Alb/Glob 1.1 ratio Bilirubin,Total 0.4 mg/dL Normal 0.2-1.0 Bilirubin,Direct < 0.1 mg/dL Normal 0.0-0.2 Bilirubin,Indirect 0.3 mg/dL Normal 0.0-0.9 Sgot/Ast 18 U/L Normal 15-37 SGPT/Alt 41 U/L Normal 12-78 Alkaline Phosphatase 107 U/L Normal 45-117 Laboratory test 03/05/2019 [facility] Rapid Strep Negative Negative 6 finding [phone] Molecular 1 B35.1, Z30.2 2 Mobile Equipment Operator: [id number] Suboptimal collection technique may reduce sensitivity of test. Refer to the [facility] Test Catalog for collection information: [email or web address] As with all diagnostic procedures, the laboratory results obtained should be used in conjunction with other clinical information available to the physician, including confirmation by another method, as applicable. 3 Z30.2 4 Performed at: RN - [facility] [address] [id number] Local Operator: Rupinder Jarrell MD, Phone: [phone] Z30.2 B35.1 6 Mobile Equipment Operator: [id number] Procedures Date Code Description Status 05/23/2019 04787 Debridement Nails Any Method 1-5 Completed 03/06/2019 02846 Debridement Nails Any Method 1-5 Completed 01/05/2019 75471 Vasectomy, unilat or bilat Completed Medical Devices Description No Information Available Encounters Type Date Location Provider Dx Diagnosis Office Visit 03/06/2019 Podiatry Office Sg Aceves DPM B35.1 Tinea unguium 2:45p M79.675 Pain in left toe(s) M79.674 Pain in right toe(s) B35.3 Tinea pedis Office Visit 02/27/2019 10:50a Family Medicine Hood Wallace, J06.[address] respiratory infection, unspecified Office Visit 12/19/2018 3:30p Urology [place] Z30.2 Encounter for Josie Cruz sterilization Assessments Date Code Description Provider 05/24/2019 N50.819 Testicular pain, unspecified Issac Lee PA 05/24/2019 N43.41 Spermatocele of epididymis, single Issac Lee PA 05/24/2019 Z30.2 Encounter for sterilization Issac Lee PA 05/23/2019 B35.1 Tinea unguium Ketan, Sg, DPM 05/23/2019 M79.675 Pain in left toe(s) Ketan RELL Bettencourt 03/06/2019 B35.1 Tinea unguium Ketan, Sg, DPM 03/06/2019 M79.675 Pain in left toe(s) Ketan, Sg, DPM 03/06/2019 M79.674 Pain in right toe(s) Sg Aceves, RELL 03/06/2019 B35.3 Tinea pedis KetanSg, DPM 02/27/2019 J06.9 Acute upper respiratory infection, Hood Wallace MD unspecified 01/19/2019 Z30.2 Encounter for sterilization Issac Lee, CLARICE 01/05/2019 Z30.2 Encounter for sterilization Nancy Simmons M.D. 12/19/2018 Z30.2 Encounter for sterilization Nancy Simmons M.D. Plan of Treatment Future Appointment(s):09/26/2019 3:45 pm - Sg Aceves DPM at Podiatry [facility]/24/2019 - Issac Lee, PAN50.819 Testicular pain, unspecifiedComments:Recommend ibuprofen 600 mg 3 times a day when the pain becomes bothersome. Scrotal support and elevation when tender. He was also provided a scrotal support.N43.41 Spermatocele of epididymis, ewpvnjZ26.2 Encounter for sterilizationComments:He is reminded today to continue to use contraception drop off another semen analysis at his Functional Status Functional Condition Comment Date Status none Active Mental Status Description No Information Available Referrals Description No Information Available
[2019-06-11 11:08] VITALS: BP 125/79
--- NOTE | 2019-06-11 11:47 | UC ---
Back Pain HPI - HPI Summary HPI Summary: 38-year-old male who was assisting his grandmother down 2 steps with her in a wheelchair when he slipped on ice and fell onto his buttocks. He did not have much pain at the time and he continued to transport her via wheelchair as planned however as time has progressed he has lower back pain mostly on the right side of his lower back. He also complains of mild soreness on the right mid ribs however did not fall onto his side. He denies any saddle anesthesia, no difficulty urinating or with bowel movements, no numbness or tingling in his extremities. - History of Current Complaint Chief Complaint: UCBackPain Stated Complaint: RIB/HIP/BACK INJ Time Seen by Provider: 06/11/19 11:46 Hx Obtained From: Patient Onset/Duration: Gradual Onset Timing: Intermittent Severity Initially: Mild Severity Currently: Mild Pain Intensity: 7 Character: Dull, Aching Aggravating Factor(s): Movement, Bending Alleviating Factor(s): Nothing Associated Signs And Symptoms: Negative: Swelling, Redness, Bruising, Weakness, Numbness, Tingling, Abdominal Pain, Flank Pain, Bladder Incontinence, Bowel Incontinence, Pain with Weight Bearing - Allergies/Home Medications Allergies/Adverse Reactions: Allergies Allergy/AdvReac Type Severity Reaction Status Date / Time environmentaL Allergy sinuses Uncoded 06/11/19 11:05 PMH/Surg Hx/FS Hx/Imm Hx Previously Healthy: Yes - Surgical History Surgical History: Yes Surgery Procedure, Year, and Place: Exploratory Right Middle Finger Surgery, 2013, [place]; Left Rotator Cuff, 2004, [place] - Family History Known Family History: Positive: Cardiac Disease, Hypertension Negative: Diabetes - Social History Alcohol Use: Rare Substance Use Type: None Smoking Status (MU): Never Smoked Tobacco - Immunization History Most Recent Influenza Vaccination: March 2014 Review of Systems All Other Systems Reviewed And Are Negative: Yes Musculoskeletal: Positive: Other: - Pt states right lower back pain with a right SLR but no radiation of pain. He also states right mid ribs soreness when he is moving or taking deep breaths. Is Patient Immunocompromised?: No Physical Exam Triage Information Reviewed: Yes Appearance: Well-Appearing, No Pain Distress, Well-Nourished Vital Signs: Initial Vital Signs Temp 98.3 F 06/11/19 11:03 Pulse 91 06/11/19 11:03 Resp 14 06/11/19 11:03 BP 125/79 06/11/19 11:03 Pulse Ox 99 06/11/19 11:03 Vital Signs Reviewed: Yes Eyes: Positive: Conjunctiva Clear Neck: Positive: Supple, Nontender - C-spine nontender, No Lymphadenopathy Respiratory: Positive: Lungs clear, Normal breath sounds, No respiratory distress, No accessory muscle use, Other: - Mild tenderness on palpation right mid rib area. No bruising, erythema, deformity or swelling or crepitus. Cardiovascular: Positive: RRR, No Murmur, Pulses Normal, Brisk Capillary Refill Abdomen Description: Positive: No Organomegaly, Soft, Other: - Patient has mild discomfort in the right side which he feels more in the rib area when I am palpating in that area. No rigidity, rebound or guarding.. Negative: CVA Tenderness (R), CVA Tenderness (L), Distended, Guarding, Hepatomegaly, Splenomegaly Bowel Sounds: Positive: Present Musculoskeletal: Positive: Strength Intact, ROM Intact, Other: - Negative straight leg raise however he does feel the pain in the right lower back with the right straight leg raise. Full range of motion. Hips themselves are nontender. There is no bruising, erythema, swelling noted in the lower back or deformity. Neurological Exam: Normal Psychological Exam: Normal Skin Exam: Normal Back Pain Course/Dx - Course Course Of Treatment: Chest x-ray:FINDINGS: The lungs are clear. There is no pleural effusion or pneumothorax. The cardiomediastinal silhouette is within normal limits. The upper abdominal contents are normal. Rib fracture is identified. IMPRESSION: 1. No displaced rib fracture identified. 2. No acute cardiac pulmonary process by radiograph. - Differential Dx/Diagnosis Provider Diagnosis: Low back strain Discharge ED - Sign-Out/Discharge Documenting (check all that apply): Patient Departure All imaging exams completed and their final reports reviewed: Yes - Discharge Plan Condition: Good Disposition: HOME Patient Education Materials: Contusion in Adults (ED) Referrals: Renetta Abebe NP [Primary Care Provider] - Additional Instructions: Apply heat to the sore areas, may take Tylenol every 4 hours for pain and alternate with Motrin every 8 hours. Avoid movements that cause pain. Follow- up with your primary care provider in 4 or 5 days if no improvement. - Billing Disposition and Condition Condition: GOOD Disposition: Home
== END 2019-06-11 12:30 | disposition home or self-care (01) ==
LOC: UCCORT 10:43
DX: S39.012A Strain of muscle, fascia and tendon of lower back, initial encounter (principal); Z91.09 Other allergy status, other than to drugs and biological substances; W00.0XXA Fall on same level due to ice and snow, initial encounter; Y92.9 Unspecified place or not applicable
CPT/HCPCS: 71046; 99211; G0463

== ENCOUNTER 2019-08-01 07:21 | Emergency (ER) | payer BC ==
[2019-08-01 07:35] VITALS: BP 104/69
[2019-08-01 07:41] LABS: Influenza A Molecular POSITIVE (Negative)
--- NOTE | 2019-08-01 07:54 | UC ---
FLU HPI - HPI Summary HPI Summary: 39-year-old male comes in with influenza-like illness symptoms for 1 day. He has body aches chills headache. He has taken some TheraFlu [id number] which did help some with the symptoms.. Does not have a sore throat does have a cough but no chest congestion. - History of Current Complaint Chief Complaint: UCRespiratory Stated Complaint: POSS FLU Time Seen by Provider: 08/01/19 07:46 Pain Intensity: 6 - Allergy/Home Medications Allergies/Adverse Reactions: Allergies Allergy/AdvReac Type Severity Reaction Status Date / Time environmentaL Allergy sinuses Uncoded 08/01/19 07:36 Home Medications: Home Medications PARoxetine HCL TAB* [Paxil TAB*] 20 mg PO QAM 05/16/12 [History Confirmed ] LevoCETirizine TAB (NF) [Xyzal TAB (NF)] 5 mg PO DAILY 07/17/14 [History Confirmed 08/01/19] Multivitamin [Multivitamins] 1 cap PO DAILY 06/16/18 [History Confirmed 08/01/19 ] Ibuprofen TAB* [Motrin TAB* 600 MG] 600 mg PO Q6H PRN 03/05/19 [History Confirmed 08/01/19] Fluticasone NASAL SPRAY 50MCG* [Flonase NASAL SPRAY 50MCG*] 2 spray BOTH NARES BID #1 btl 04/20/19 [Rx Confirmed 08/01/19] Diphenhydra/Phenyleph/Acetamin [Theraflu Expressmax Cold Nt Lq] 1 dose PO Q8H PRN 08/01/19 [History Confirmed 08/01/19] Oseltamivir CAP* [Tamiflu CAP*] 75 mg PO BID #10 cap 08/01/19 [Rx] PMH/Surg Hx/FS Hx/Imm Hx Previously Healthy: Yes - Surgical History Surgical History: Yes Surgery Procedure, Year, and Place: Exploratory Right Middle Finger Surgery, 2013, [place]; Left Rotator Cuff, 2004, [place] - Family History Known Family History: Positive: Cardiac Disease, Hypertension Negative: Diabetes - Social History Alcohol Use: Rare Substance Use Type: None Smoking Status (MU): Never Smoked Tobacco - Immunization History Most Recent Influenza Vaccination: March 2014 Review of Systems All Other Systems Reviewed And Are Negative: Yes Constitutional: Positive: Chills, Other - see hpi Skin: Positive: Negative Eyes: Positive: Negative ENT: Positive: Nasal Discharge Respiratory: Positive: Cough Cardiovascular: Positive: Negative Gastrointestinal: Positive: Negative Motor: Positive: Negative Neurovascular: Positive: Negative Musculoskeletal: Positive: Myalgia Neurological/Mental Status: Positive: Headache Psychological: Positive: Negative Is Patient Immunocompromised?: No Physical Exam Triage Information Reviewed: Yes Appearance: No Pain Distress, Well-Nourished, Ill-Appearing - mild Vital Signs: Initial Vital Signs Temp 98.5 F 08/01/19 07:32 Pulse 89 08/01/19 07:32 Resp 18 08/01/19 07:32 BP 104/69 08/01/19 07:32 Pulse Ox 98 08/01/19 07:32 Vital Signs Reviewed: Yes Eye Exam: Normal Eyes: Positive: Conjunctiva Clear ENT: Positive: Pharynx normal, Nasal congestion Neck: Positive: Supple Respiratory: Positive: Lungs clear, Normal breath sounds, No respiratory distress Cardiovascular: Positive: RRR Musculoskeletal: Positive: Strength Intact, ROM Intact Neurological: Positive: Alert, Muscle Tone Normal Psychological: Positive: Age Appropriate Behavior Skin Exam: Normal Flu Course/Dx - Differential Dx/Diagnosis Provider Diagnosis: Influenza Discharge ED - Sign-Out/Discharge Documenting (check all that apply): Patient Departure All imaging exams completed and their final reports reviewed: No Studies - Discharge Plan Condition: Stable Disposition: HOME Prescriptions: Oseltamivir CAP* [Tamiflu CAP*] 75 mg PO BID #10 cap Patient Education Materials: Influenza (ED) Forms: *Work Release Referrals: Renetta Abebe NP [Primary Care Provider] - Additional Instructions: FOLLOW UP WITH YOUR DOCTOR IF NOT COMPLETELY IMPROVED. GET REEVALUATED SOONER IF NOT IMPROVED OR WORSE OR ANY QUESTIONS OR CONCERNS. - Billing Disposition and Condition Condition: STABLE Disposition: Home
== END 2019-08-01 08:02 | disposition home or self-care (01) ==
LOC: UCCORT 07:21
DX: J11.1 Influenza due to unidentified influenza virus with other respiratory manifestations (principal); Z91.09 Other allergy status, other than to drugs and biological substances
CPT/HCPCS: 99212; G0463